=== PATIENT | male | born 1985 | race Caucasian/White ===

== ENCOUNTER 2020-02-18 14:09 | Outpatient (REF) | payer BC, SELFPAY | END 2020-02-18 14:10 | disposition home or self-care (01) | LOC: HO.LNP 14:09 | PROVIDERS: Visit Provider Internal Medicine | DX: Z20.828 Contact with and (suspected) exposure to other viral communicable diseases (principal) | CPT/HCPCS: U0003 ==

== ENCOUNTER 2020-02-28 22:07 | Day surgery (SDC) | payer BC, SELFPAY ==
[2020-02-28 22:10] VITALS: BP 135/89; PULSE 87; RESP 18; TEMP 37; O2SAT 97; BMI 31.8
--- NOTE | 2020-02-28 22:17 | ED.GENADULT ---
HPI - General Adult General Chief complaint: General Medical Stated complaint: Food stuck in throat Time Seen by Provider: 02/28/20 22:17 Source: patient Mode of arrival: ambulatory Limitations: no limitations History of Present Illness HPI narrative: Patient had Serbian food which include beef and chicken around 17:30 feels food stuck in his esophagus. This has happened before also but patient able to vomit or pass it off his own at this time patient is not able to throw up a not able to take liquids or solids. Patient denies any abdominal pain no history of gastritis patient never had endoscopy in the past Related Data Home Medications Medication Instructions Recorded Confirmed No Known Home Meds 02/28/20 02/28/20 Allergies Allergy/AdvReac Type Severity Reaction Status Date / Time No Known Allergies Allergy Verified 02/28/20 23:13 Review of Systems Review of Systems: Constitutional : No Weight loss, No Fever, No Chills ENT/Mouth : No sore throat, No Rhinorrhea Eyes: No Eye Pain, No Swelling Cardiovascular : No Chest Pain, no Dyspnea on Exertion, No Orthopnea, No Edema, No Palpitations, no SOB Respiratory : No Cough, No Sputum Gastrointestinal : no Nausea, No Vomiting, No Diarrhea, No abdominal Pain, No Hematochezia, No Melena Genitourinary : No Dysuria, No Urinary Frequency Musculoskeletal : No joint pain, No Myalgias, No Joint Swelling Skin : No Skin Lesions, No rash Neuro : No Weakness, No Numbness, pos Dizziness, No Headache Psych : No Anxiety/Panic, No Depression Heme/Lymph: No Bruising, No Lymphadenopathy Endocrine : No Polyuria, No Polydipsia All other systems reviewed and are negative [facility] Past Medical History Medical History Seasonal allergies Social History Social History Advance Directives: No Advance Directives Information Provided: No Physical Exam Vital Signs: Vital Signs: Last Vital Signs Temp 98.6 F 02/28/20 22:10 Pulse 88 02/28/20 22:49 Resp 16 02/28/20 22:49 BP 132/86 02/28/20 22:49 Pulse Ox 98 02/28/20 22:49 Body Mass Index 31.8 Appearance: Alert. Oriented X3. No acute distress. Eyes: Pupils equal, round and reactive to light. ENT: Pharynx normal. No drooling of saliva no stridor Neck: Normal inspection. Neck supple. CVS: Normal heart rate and rhythm. Pulses normal. Respiratory: No respiratory distress. Breath sounds normal. Abdomen: Soft and nontender. Bowel sounds are present, no mass palpable, no CVA tenderness Skin: Skin warm and dry. Normal skin color. Normal skin turgor. Extremities: No lower extremity edema. Neuro: Oriented X 3. No motor deficit. No sensory deficit. Medical Decision Making MDM Narrative Medical decision making narrative: Patient with achalasia unable to swallow liquids or solids IV glucagon tried without any improvement also EZ gas tried without success. Case discussed with Dr. Soares will take patient to OR for endoscopy tonight Lab Data Lab results reviewed: Yes I reviewed the patient's lab results. Result diagrams: 02/28/20 22:49 02/28/20 22:49 Labs: Lab Results 02/28/20 02/28/20 02/28/20 Range/Units 22:49 22:49 23:45 WBC 5.5 (4.8-10.8) X10*3/uL RBC 5.55 (4.60-5.80) X10*6/uL Hgb 17.1 (14.0-18.0) g/dl Hct 50.6 (42-52) % MCV 91.2 (80-98) fL MCH 30.8 (27.0-33.0) pg MCHC 33.8 (31.0-36.0) g/dl RDW 11.9 (11.0-16.0) % Plt Count 231 (160-400) X10*3/uL MPV 11.0 (9.4-12.4) fL Immature Gran % (Auto) 0.2 (0.0-0.4) % Neut % (Auto) 64.2 (45-73) % Lymph % (Auto) 25.4 (20-40) % [place] % (Auto) 5.5 (2-11) % Eos % (Auto) 4.0 (0-4) % Baso % (Auto) 0.7 (0-2) % Lymph # (Auto) 1.4 (1.2-4.9) X10*3/uL [place] # (Auto) 0.3 (0.1-1.2) X10*3/uL Eos # (Auto) 0.2 (0.0-0.4) X10*3/uL Baso # (Auto) 0.0 (0.0-0.2) X10*3/uL Abs Immat Gran (auto) 0.01 (0.00-0.03) X10*3/uL Absolute Neuts (auto) 3.5 (2.0-8.3) X10*3/uL Absolute Nucleated RBC 0.000 (0.0-0.012) X10*3/uL Nucleated RBC % (auto) 0.0 (0.0-0.2) /100WBC Sodium 141 (135-145) mmol/L Potassium 4.7 (3.3-5.1) mmol/l Chloride 103 (96-108) mmol/L Carbon Dioxide 29 (22-29) mmol/L Anion Gap 14 (12-20) BUN 14 (9-16) mg/dL Creatinine 0.98 (0.5-1.4) mg/dL Estim Creat Clear Calc 132.7 Estimated GFR > 60 Random Glucose 99 (60-115) mg/dL Calcium 9.3 (8.4-10.2) mg/dL COVID-19 (NICCI) Negative (Negative) COVID-19 Clin Com See Note Discharge Plan Discharge Clinical Impression: Impacted foreign body in esophagus Qualifiers: Encounter type: initial encounter Qualified Code(s): T18.108A - Unspecified foreign body in esophagus causing other injury, initial encounter Patient Disposition: Admitted as Observation
[2020-02-28 22:33] VITALS: O2SAT 97
--- NOTE | 2020-02-28 22:39 | XR_ITS ---
EXAMINATION: CHEST 1 VIEW CLINICAL INFORMATION: Achalasia. COMPARISON: 03/15/2011. TECHNIQUE: An AP view of the chest is provided. FINDINGS: The cardiac silhouette is not enlarged. The mediastinal and hilar contours are unremarkable. There are neither pleural effusions nor pneumothoraces. There are no consolidations. The osseous structures are unremarkable. XR/XR chest 1V IMPRESSION: No evidence for acute disease.
[2020-02-28 22:49] VITALS: BP 132/86; PULSE 88; RESP 16; O2SAT 98
--- NOTE | 2020-02-28 22:52 | PC.NURSE ---
Pt arrives from home, speaking full sentences, CAOx4, voice noted to be mildly hoarse. Pt explains he was eating south african food @ 1700 when food became stuck in his throat. Pt reports difficulty swallowing saliva, states he has been spitting it out as swallowing is painful. Pt attempted forced vomiting [employer] to dislodge obstruction but was unable to. Pt pointing to mid chest when describing location of discomfort. IV established, labs obtained, pt medicated per MAR. Pt provided with an emesis bag and kleenex at this time, states he feels really uncomfortable. Continue to monitor.
[2020-02-28 23:04] LABS: Basophils Percent Auto 0.7 % (0-2); Eosinophils Absolute Auto 0.2 X10*3/uL (0.0-0.4); Hematocrit 50.6 % (42-52); Hemoglobin 17.1 g/dl (14.0-18.0); Imm Gran Abs Auto 0.01 X10*3/uL (0.00-0.03); Imm Gran Pct Auto 0.2 % (0.0-0.4); Lymphocytes Absolute Auto 1.4 X10*3/uL (1.2-4.9); Lymphocytes Percent Auto 25.4 % (20-40); MANUAL DIFF FLAG NO; Mean Corpuscular HGB Conc 33.8 g/dl (31.0-36.0); Mean Corpuscular Hemoglobin 30.8 pg (27.0-33.0); Mean Corpuscular Volume 91.2 fL (80-98); Monocytes Absolute Auto 0.3 X10*3/uL (0.1-1.2); Monocytes Percent Auto 5.5 % (2-11); Neutrophils Absolute Auto 3.5 X10*3/uL (2.0-8.3); Neutrophils Percent Auto 64.2 % (45-73); Platelet Count 231 X10*3/uL (160-400); Red Blood Count 5.55 X10*6/uL (4.60-5.80); Red Cell Distribution Width 11.9 % (11.0-16.0); White Blood Count 5.5 X10*3/uL (4.8-10.8)
--- NOTE | 2020-02-28 23:04 | PC.NURSE ---
at bedside administering EZ Gas.
--- NOTE | 2020-02-28 23:16 | PC.NURSE ---
Pt reports no relief after the EZ gas. Pt sipping gingerale, reports extreme discomfort, forcing self to vomit, pt vomiting clear fluid. XRay at bedside.
[2020-02-28 23:39] LABS: Anion Gap 14 (12-20); Blood Urea Nitrogen 14 mg/dL (9-16); Calcium 9.3 mg/dL (8.4-10.2); Carbon Dioxide 29 mmol/L (22-29); Chloride 103 mmol/L (96-108); Creatinine Clr Calc Pharmacy 132.7; Estimated Glomerular Filt Rate > 60; Glucose Random 99 mg/dL (60-115); Potassium 4.7 mmol/l (3.3-5.1); Sodium 141 mmol/L (135-145)
[2020-02-28] MEDS: Famotidine/PF 20 MG/2 ML VIAL IVPUSH (23:40)
[2020-02-28] MEDS: 0.9 % Sodium Chloride 1,000 ML 999 ML IVCONT (23:40)
--- NOTE | 2020-02-28 23:40 | PC.NURSE ---
Pt medicated per MAY. Pt reporting increased intermittent pain with nausea and difficulty swallowing. Continue to monitor.
[2020-02-28] MEDS: ondansetron HCL 4 MG/2 ML VIAL IVPUSH (23:47)
--- NOTE | 2020-02-28 23:47 | PC.NURSE ---
Pt medicated with Zofran per request due to nausea. submarine cable equipment technician at bedside to obtain Covid swab.
--- NOTE | 2020-02-28 23:53 | PC.NURSE ---
Dr Soares at bedside for primary eval. Pt aware of plan for a possible endoscopy to remove obstruction tonight.
--- NOTE | 2020-02-29 00:03 | PM.EVENT ---
Event Note Date of Service: 02/29/20 Event Note: GI Consult-Full note dictated Imp: 34yo healthy male presenting with an esophageal obstruction since dinner time. This has been refractory to medical therapy in the ER. He denies CP nor SOB. He describes similar but briefer episodes in the past, but has never needed to come to the ER nor has he needed an endoscopy. Rec: EGD with possible dilation with MAC/GA tonight. Full consent obtained from him for this, including risks of bleeding and perforation. Patient was comfortable with this plan. Thanks
[2020-02-29 00:06] LABS: COVID-19 Test Negative (Negative); IDNOW Serial# 9DD0AD1C
--- NOTE | 2020-02-29 00:21 | PC.NURSE ---
Pt ambulating to the bathroom with a blunt/steady gait.
--- NOTE | 2020-02-29 00:27 | PC.NURSE ---
Pt changing into hospital gown, belongings list completed at bedside with pt.
--- NOTE | 2020-02-29 00:34 | HO.ANESPROP2 ---
[facility] Past Medical History Medical History Seasonal allergies Social History Social History Advance Directives: No Advance Directives Information Provided: No Meds Allergies Allergy/AdvReac Type Severity Reaction Status Date / Time No Known Allergies Allergy Verified 02/28/20 23:13 Home Medications Medication Instructions Recorded Confirmed Type No Known Home Meds 02/28/20 02/28/20 History Exam Exam Date and Time: February 29, 2020 0034 Height,Weight and Vital Signs: Height 6 ft Weight 106.594 kg Last Vital Signs Temp 98.6 F 02/28/20 22:10 Pulse 88 02/28/20 22:49 Resp 16 02/28/20 22:49 BP 132/86 02/28/20 22:49 Pulse Ox 98 02/28/20 22:49 Pertinent Lab Results Pertinent Lab Results: Laboratory Tests 02/28/20 02/28/20 02/28/20 22:49 22:49 23:45 WBC 5.5 RBC 5.55 Hgb 17.1 Hct 50.6 MCV 91.2 MCH 30.8 MCHC 33.8 RDW 11.9 Plt Count 231 MPV 11.0 Immature Gran % (Auto) 0.2 Neut % (Auto) 64.2 Lymph % (Auto) 25.4 [place] % (Auto) 5.5 Eos % (Auto) 4.0 Baso % (Auto) 0.7 Lymph # (Auto) 1.4 [place] # (Auto) 0.3 Eos # (Auto) 0.2 Baso # (Auto) 0.0 Abs Immat Gran (auto) 0.01 Absolute Neuts (auto) 3.5 Absolute Nucleated RBC 0.000 Nucleated RBC % (auto) 0.0 Sodium 141 Potassium 4.7 Chloride 103 Carbon Dioxide 29 Anion Gap 14 BUN 14 Creatinine 0.98 Estim Creat Clear Calc 132.7 Estimated GFR > 60 Random Glucose 99 Calcium 9.3 COVID-19 (NICCI) Negative COVID-19 Clin Com See Note Assessment and Plan Final Anesthetic Review Final Preanesthetic Review: No Changes in Pt Med Stat, Meds/Allgs Chart Reviewed, Consent Obtained/Reviewed and Anes Risks/Benef Reviewed Patient Risk: Intermediate Procedure Risk: Intermediate Anesthetic Plan Anesthetic Plan: GA Disposition: Standard PACU
--- NOTE | 2020-02-29 00:41 | PC.NURSE ---
Report given to OR.
--- NOTE | 2020-02-29 01:20 | CONS_ITS ---
DATE OF SERVICE: REQUESTING PHYSICIAN: Dr. Baeza in the ER. REASON FOR CONSULTATION: Dysphagia and esophageal obstruction. HISTORY OF PRESENT ILLNESS: The patient is a 34-year-old healthy male, who describes the onset of dysphagia at approximately 6 p.m. tonight during dinner. He had been eating Telugu food. Since that time, he has been unable to swallow any liquids nor saliva. He came to the ER and received IV glucagon, but without any relief. He continues to have to vomit up saliva. He denies any chest pain or shortness of breath. He does describe similar episodes in the past, but usually much briefer and able to spontaneously resolve with some regurgitation. He has never had to come to the ER nor have endoscopy. He denies any chronic heartburn. He is otherwise healthy. He denies any abdominal pains generally. His bowel movements have been regular without any sign of bleeding. He denies any family history of esophageal disease. MEDICATIONS: At home, none. PAST MEDICAL HISTORY: Seasonal allergies. He denies any history of heart disease, diabetes, stroke, lung disease, or kidney disease. PAST SURGICAL HISTORY: He denies any surgeries. 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 He is . He does not smoke. He has occasional alcohol. FAMILY HISTORY: Noncontributory. REVIEW OF SYSTEMS: CONSTITUTIONAL: In general, he has been feeling well with good energy and good appetite. SKIN: No rash. No pruritus. CARDIAC: No chest pain. PULMONARY: No cough. No hemoptysis. GI: As above. PHYSICAL EXAMINATION: GENERAL: The patient is a pleasant, alert male, nonjaundiced. NECK: Supple without lymphadenopathy nor crepitus. CHEST: Clear. CARDIAC: Normal S1 and S2. ABDOMEN: Soft, nondistended, and nontender. IMPRESSION: Given the patient's clinical history and refractory symptoms to medication, he will undergo upper endoscopy with possible dilation this evening. This will be done with monitored anesthesia care or general anesthesia. He may very well have an esophageal ring or stricture causing his previous intermittent symptoms and tonight's obstruction. Full consent has been obtained for the endoscopy and possible dilation, including risks of bleeding and perforation. Thank you for this consultation. MD MERLE Hansen/GILMA / [id number] CB
--- NOTE | 2020-02-29 01:25 | PM.OP ---
Brief Operative Note Date of Service: 02/29/20 Pre-op diagnosis: Esophageal obstruction Post-op diagnosis: other (Same, esophagitis, hiatal hernia) Procedure: EGD with removal of esophageal foreign body Surgeon: Jovani Soares Anesthesia: LASHAWN Estimated blood loss (mL): 0 Pathology: none sent Condition: stable Disposition: PACU
[2020-02-29 01:40] VITALS: BP 134/90; PULSE 81; RESP 16; TEMP 36.9; O2SAT 95
[2020-02-29 01:45] VITALS: BP 132/77; PULSE 80; RESP 16; O2SAT 96
--- NOTE | 2020-02-29 01:50 | OP_ITS ---
SURGEON: Jovani Soares MD INDICATIONS: The patient presents for evaluation of esophageal obstruction. Full consent was obtained from him for this, including risks of bleeding and perforation. PREOPERATIVE DIAGNOSIS: Esophageal obstruction. POSTOPERATIVE DIAGNOSIS: PROCEDURE PERFORMED: Esophagogastroduodenoscopy with removal of esophageal foreign body. ESTIMATED BLOOD LOSS: COMPLICATIONS: ANESTHESIA: General anesthesia. ASSISTANTS: SPECIMENS: POSTOPERATIVE DIAGNOSES: Esophageal obstruction, distal esophagitis, hiatal hernia. DESCRIPTION OF PROCEDURE: The patient was placed in the supine position. The Olympus video gastroscope was passed in the posterior oropharynx and upper esophagus under direct vision. The scope was passed slowly to the distal esophagus. There was some fluid in the esophagus, which was suctioned and removed. The food bolus was seen at approximately 39 cm. Initial attempts at just pushing it into the stomach were unsuccessful. The food bolus was broken up with the biopsy forceps and then pushed completely into the stomach. The scope was advanced to pylorus, and the duodenum was cannulated to the descending portion. The duodenum including the bulb appeared normal without mass or ulceration. The scope was withdrawn back to the stomach. The gastric antrum and body appeared normal with good peristalsis. The scope was retroflexed visualizing the proximal stomach. This was only partially visualized due to the retained food and fluid. There were no masses nor ulceration visualized. The scope was straightened and withdrawn back to the esophagus. The gastroesophageal junction was carefully inspected. There was some evidence of esophagitis and friability from where the food had been. There was no definitive stricture nor ring. The scope was then withdrawn through the remainder of the esophagus, which appeared normal. There was no evidence of any proximal esophageal rings. The scope was withdrawn from the patient. He tolerated the procedure well and was returned to the recovery area in stable condition. IMPRESSION: 1. Esophageal foreign body. 2. Distal esophagitis secondary to the impacted food. 3. Small hiatal hernia. PLAN: The patient will be discharged later this evening if stable. I will give him a prescription to use omeprazole 20 mg daily. He was instructed to eat very carefully and slowly. Given his previous history of transient esophageal obstructions, I would recommend a repeat upper endoscopy with possible balloon dilation in the next month or so He was advised to call sooner if need be. This has been discussed with his family. MD MRELE Hasnen/GILMA / [id number] MTDD
[2020-02-29 01:51] VITALS: BP 145/76; PULSE 81; RESP 16; O2SAT 95
[2020-02-29 01:56] VITALS: BP 140/81; PULSE 79; RESP 16; O2SAT 96
--- NOTE | 2020-03-01 09:40 | HO.POSTANES ---
Post Anesthesia Evaluation Post Anesthesia Evaluation Vital Signs: VSS Anesthesia: Monitored Mental Status: Awake Pain Control: Satisfactory Nausea/Vomiting: None Hydration: Adequate Anesthesia-Related Issues: No Anes. Related Issues
== END 2020-02-29 02:05 | disposition home or self-care (01) ==
LOC: HO.ED 22:52 → HO.SSS 02-29 00:26
PROVIDERS: Emergency Provider Internal Medicine; PCP Internal Medicine; Visit Provider Internal Medicine
PROC: 0DJ08ZZ Inspection of Upper Intestinal Tract, Via Natural or Artificial Opening Endoscopic (ICD-10-PCS; CPT 43235; principal; 2020-02-29 00:20)
DX: T18.128A Food in esophagus causing other injury, initial encounter (principal); K20.90 Esophagitis, unspecified without bleeding; K44.9 Diaphragmatic hernia without obstruction or gangrene; X58.XXXA Exposure to other specified factors, initial encounter; Y93.9 Activity, unspecified; Y92.9 Unspecified place or not applicable; Y99.9 Unspecified external cause status; Z20.828 Contact with and (suspected) exposure to other viral communicable diseases
CPT/HCPCS: 43247; 36415; 71045; 80048; 85025; 87635; 96361; 96374; 96375; 99285; J0330; J1610; J2250; J2405

== ENCOUNTER 2020-04-05 10:53 | Day surgery (SDC) | payer BC, SELFPAY ==
--- NOTE | 2020-04-02 10:19 | P.CONAN_ITS ---
Documented by User: Makayla Gomez 04/02/20 10:20 HPI - Anesthesia Eval Consult details Narrative: 34yo M for Upper Endoscopy EGD for food bolus with GA 02/29/20 [facility] Past Medical History Medical History (Updated 04/05/20 @ 11:38 by Enriqueta Hall) GERD (gastroesophageal reflux disease) Hiatal hernia Seasonal allergies Surgical History Surgical History History of esophagogastroduodenoscopy (EGD) Social History Social History Smoking Status: Never smoker Use of substances other than those prescribed or required for medical reasons: No Advance Directives: No Advance Directives Information Provided: Yes Recently lost weight without trying: No Meds Allergies Allergy/AdvReac Type Severity Reaction Status Date / Time No Known Allergies Allergy Verified 03/30/20 12:52 Home Medications Medication Instructions Recorded Confirmed Type omeprazole 20 mg PO DAILY 03/30/20 03/30/20 History Exam Exam Date and Time: April 02, 2020 1019 Assessment and Plan Assessment Anesthesia Assessment: Chart Reviewed Documented by User: Enriqueta Hall 04/05/20 11:39 [facility] Past Medical History Medical History (Updated 04/05/20 @ 11:38 by Enriqueta Hall) GERD (gastroesophageal reflux disease) Hiatal hernia Seasonal allergies Family History Family history of problems with anesthesia: No Surgical History Surgical History History of esophagogastroduodenoscopy (EGD) History of Problems with Anesthesia: No Social History Social History Smoking Status: Never smoker Use of substances other than those prescribed or required for medical reasons: No Advance Directives: No Advance Directives Information Provided: Yes Recently lost weight without trying: No Meds Allergies Allergy/AdvReac Type Severity Reaction Status Date / Time No Known Allergies Allergy Verified 03/30/20 12:52 Home Medications Medication Instructions Recorded Confirmed Type omeprazole 20 mg PO DAILY 03/30/20 03/30/20 History Exam Height,Weight and Vital Signs: Vital Signs Temp Pulse Resp BP Pulse Ox 04/05/20 11:09 98.2 F 73 18 127/74 99 Airway Mallampati Class: I TM Dist: >3cm Neck ROM: Full Heart: RRR Lungs: CTAB Assessment and Plan Assessment Anesthesia Assessment: Anesthesia Plan Discussed and Chart Reviewed Final Anesthetic Review NPO: Yes ASA Class: II Final Preanesthetic Review: No Changes in Pt Med Stat, Meds/Allgs Chart Reviewed, Consent Obtained/Reviewed and Anes Risks/Benef Reviewed Patient Risk: Low Procedure Risk: Low Assessment/Block/Sedation in SS: Assess/Block/Sedation-SS Anesthetic Plan Anesthetic Plan: MAC: Disposition: Standard PACU
[2020-04-05 11:09] VITALS: BP 127/74; PULSE 73; RESP 18; TEMP 36.8; O2SAT 99; BMI 31.6
[2020-04-05] MEDS: Lactated Ringers 1,000 ML 100 ML IVCONT (11:20)
[2020-04-05 12:04] VITALS: BP 112/63; PULSE 79; RESP 16; TEMP 36.4; O2SAT 98
--- NOTE | 2020-04-05 12:06 | PM.OP ---
Brief Operative Note Date of Service: 04/05/20 Pre-op diagnosis: Dysphagia Post-op diagnosis: other (Small hiatal hernia, R/O Eosinophilic esophagitis) Procedure: EGD with biopsies and balloon dilation with an 18 to 19 mm balloon Surgeon: Jovani Soares Anesthesia: MAC Estimated blood loss (mL): 3.0 Pathology: other (A. Esophagus at 25cm) Condition: stable Disposition: PACU
[2020-04-05 12:20] VITALS: BP 105/68; PULSE 69; RESP 16; TEMP 36.4; O2SAT 95
--- NOTE | 2020-04-05 13:30 | OP_ITS ---
SURGEON: Jovani Soares MD INDICATIONS: The patient presents for evaluation of previous history of esophageal obstruction and dysphagia. Full consent has been obtained from him for this, including risks of bleeding and perforation. PREOPERATIVE DIAGNOSIS: History of esophageal obstruction and dysphagia. POSTOPERATIVE DIAGNOSIS: 1. History of esophageal obstruction and dysphagia. 2. Small hiatal hernia. Rule out eosinophilic esophagitis. PROCEDURE PERFORMED: Esophagogastroduodenoscopy with balloon dilation of gastroesophageal junction, and biopsies. ESTIMATED BLOOD LOSS: COMPLICATIONS: ANESTHESIA: Monitored anesthesia care. ASSISTANTS: SPECIMENS: DESCRIPTION OF PROCEDURE: The patient was placed in the left lateral decubitus position. An Olympus video gastroscope was passed in the posterior oropharynx and upper esophagus under direct vision. The scope was passed slowly into the distal esophagus. The gastroesophageal junction appeared normal at 39 cm. There was no definitive evidence of esophageal ring nor stricture. There was no esophagitis. There was a minimal hiatal hernia. The scope was advanced to the pylorus. The duodenum was cannulated to the descending portion. The duodenum including the bulb appeared normal without mass or ulceration. The scope was withdrawn back in the stomach. The gastric antrum and body appeared normal with good peristalsis. Scope was retroflexed visualizing the proximal stomach carefully, which appeared normal, without any sign of mass or ulceration. The scope was straightened and withdrawn back to the esophagus. I did use a [employer] Incremental balloon to dilate the gastroesophageal junction from 18 mm to 19 mm at the recommended pressure for between 30 and 60 seconds. There was some heme noted post dilation, but there was no definitive disruption of any stricture nor ring noted. The scope was then withdrawn through the remainder of the esophagus. There were no definitive proximal esophageal rings. Biopsies were obtained at 25 cm to rule out eosinophilic esophagitis. The scope was withdrawn from the patient. He tolerated the procedure well and was returned to recovery area in stable condition. IMPRESSION: 1. Small hiatal hernia. 2. Status post balloon dilation of gastroesophageal junction. 3. Rule out eosinophilic esophagitis. PLAN: The results of the biopsy will be checked. He has been using omeprazole 20 mg daily since his esophageal obstruction at the end of February. I advised him to use that for 1 more month and then at that point he could stop it as he was not having any significant reflux. If things are stable and he is doing well, he can then see me on a p.r.n. basis. He was instructed to call me if dysphagia recurs. MD MERLE Hansen/GILMA / [id number] MTDD
== END 2020-04-05 12:45 | disposition home or self-care (01) ==
PROVIDERS: PCP Internal Medicine; Visit Provider Internal Medicine
PROC: 0DJ08ZZ Inspection of Upper Intestinal Tract, Via Natural or Artificial Opening Endoscopic (ICD-10-PCS; CPT 43235; principal; 2020-04-05 11:50)
DX: R13.10 Dysphagia, unspecified (principal); K21.00 Gastro-esophageal reflux disease with esophagitis, without bleeding; Z87.19 Personal history of other diseases of the digestive system; K44.9 Diaphragmatic hernia without obstruction or gangrene; J30.2 Other seasonal allergic rhinitis; Z79.899 Other long term (current) drug therapy
CPT/HCPCS: 43249; 43239; 88305; C1726

== ENCOUNTER 2020-10-02 20:03 | Emergency (ER) | payer BC, SELFPAY ==
[2020-10-02 20:17] VITALS: BP 127/77; PULSE 78; RESP 18; TEMP 36.5; O2SAT 97; BMI 30.3
--- NOTE | 2020-10-02 21:19 | ED_ITS ---
HPI - Wound/Laceration General Chief Complaint: Wound/Laceration Stated Complaint: LAC Time Seen by Provider: 10/02/20 20:28 Source: patient Mode of arrival: ambulatory Limitations: no limitations History of Present Illness HPI narrative: 34-year-old male presents with laceration to the scrotum after his dog accidentally bit him through his pants. States that he was playing with his dog, the dog missed testicles. He also reports to have some swelling to the left knee after a suspected insect bite. Does not report any other symptoms. Onset (ago): hour(s) (Within the hour of arrival) Location: genitals Place: home Patient tetanus UTD: No Context: accidental Associated symptoms: pain Related Data Home Medications Medication Instructions Recorded Confirmed omeprazole 20 mg PO DAILY 03/30/20 03/30/20 Previous Rx's Medication Instructions Recorded amoxicillin-pot clavulanate 1 tab PO Q12H 10 Days #20 tab 10/02/20 [Augmentin] doxycycline monohydrate 100 mg PO BID 14 Days #28 tab 10/02/20 oxycodone 5 mg PO Q8H PRN #10 tab 10/02/20 Allergies Allergy/AdvReac Type Severity Reaction Status Date / Time No Known Allergies Allergy Verified 03/30/20 12:52 Review of Systems Review of Systems: Constitutional: No Fever, No Chills ENT/Mouth: No Ear Pain, No Hoarseness, No sore throat Eyes: No Eye Pain, No Swelling, No Redness, No Foreign Body Cardiovascular: No Chest Pain, No SOB Respiratory: No Cough, No Dyspnea Gastrointestinal: No Nausea, No Vomiting, No Diarrhea, No abdominal Pain Genitourinary: No Dysuria, No Hematuria Musculoskeletal: positive testicular pain, No Myalgias, No Joint Swelling Skin: Positive scrotal laceration, No Skin lacerations, No rash Neuro: No Weakness, No Numbness, No Paresthesias, No Loss of Consciousness, No Dizziness, No Headache Psych: No Anxiety/Panic, No Depression Heme/Lymph: no easy bruising, no Lymphadenopathy Endocrine: No Polyuria, No Polydipsia Yes all other systems are reviewed and are negative [facility] Past Medical History Attestation statement: The following information was validated with the patient. Source: old records reviewed Medical History (Updated 10/02/20 @ 22:17 by Chasidy Muñoz NP) GERD (gastroesophageal reflux disease) Hiatal hernia Seasonal allergies Surgical History History of esophagogastroduodenoscopy (EGD) Social History Social History Advance Directives: No Physical Exam Vital Signs: Vital Signs: Last Vital Signs Temp 97.7 F 10/02/20 20:17 Pulse 78 10/02/20 20:17 Resp 18 10/02/20 20:17 BP 127/77 10/02/20 20:17 Pulse Ox 97 10/02/20 20:17 Body Mass Index 30.3 Appearance: Alert. Oriented X3. No acute distress. Eyes: Pupils equal, round and reactive to light. ENT: Pharynx normal. Neck: Normal inspection. Neck supple. CVS: Normal heart rate and rhythm. Pulses normal. Respiratory: No respiratory distress. Breath sounds normal. Abdomen: Soft and nontender. Skin: 1.5 cm flap laceration to the left scrotum. No testicular swelling or bruising. Skin warm and dry. Normal skin color. Normal skin turgor. Extremities: No lower extremity edema. Neuro: No motor deficit. No sensory deficit. Course Course Course Narrative: 34-year-old male presents with scrotal laceration after his dog accidentally bit him through his pants while playing. Tdap will be updated today. Will irrigate with 2 L of normal saline with Betadine cleanse. I did discuss antibiotic options with this patient, Dr. Reyna also in to evaluate. Patient does have a wound on the left lateral knee suspected to be tick bite. Will order Lyme titer. We will treat with doxycycline and Augmentin. Patient does understand why we cannot suture this lack and it should be open. He will monitor for signs and symptoms of infection and follow up with Urology if needed. Patient verbalized understanding of and agrees to plan of care discharge home. MDM - Wound/Laceration Differential Diagnosis Differential diagnosis: Likely laceration Medical Records Attestation: I reviewed the patient's medical records. Discharge Plan Discharge Clinical Impression: Laceration of scrotum Qualifiers: Encounter type: initial encounter Qualified Code(s): S31.31XA - Laceration without foreign body of scrotum and testes, initial encounter Dog bite Qualifiers: Encounter type: initial encounter Qualified Code(s): W54.0XXA - Bitten by dog, initial encounter Patient Disposition: Home, Self-Care Instructions: Animal Bite (ED), Laceration (ED) Additional Instructions: you were evaluated for dog bite to the testicle. Please take doxycycline and Augmentin as directed. Your Lyme titer is pending. You may consider following up with urology, I referred you to Dr. Tipton If you notice signs of infection, which include but are not limited to swelling, fevers, chills, purulent drainage from the site please return to the emergency department for immediate evaluation. We updated Your Tdap vaccine today. Thank you for choosing this emergency department for evaluation. Please follow-up with primary care physician as needed. Return to the emergency department for any new, concerning, or worsening symptoms. Prescriptions: New doxycycline monohydrate 100 mg tablet 100 mg PO BID 14 Days Qty: 28 RF: 0 amoxicillin-pot clavulanate [Augmentin] 875-125 mg tablet 1 tab PO Q12H 10 Days Qty: 20 RF: 0 oxycodone 5 mg tablet 5 mg PO Q8H PRN (Reason: pain) Qty: 10 RF: 0 No Action omeprazole 20 mg Tablet,Delayed Release (Dr/Ec) 20 mg PO DAILY RF: 0 Referrals: Jameson Tipton MD [Physician] - 2 days ( dog bite with scrotal laceration) Stand Alone Forms: Work/School Release
[2020-10-02] MEDS: oxyCODONE HCl Immed Release 5 MG TABLET PO (21:37)
[2020-10-02] MEDS: Amoxicillin/Potassium Clav 875 MG TABLET PO (21:38)
[2020-10-02] MEDS: Diphth,Pertus(ACell),Tet Adult 0.5 ML SYRINGE IM (22:37)
[2020-10-04 23:16] LABS: Lyme Blot 5.13 index
[2020-10-06 13:00] LABS: Lyme Abs Screen POSITIVE
[2020-10-08 01:16] LABS: 18 KD (IgG) Band REACTIVE; 23 KD (IgG) Band NON-REACTIVE; 23 KD (IgM) Band NON-REACTIVE; 28 KD (IgG) Band NON-REACTIVE; 30 KD (IgG) Band NON-REACTIVE; 39 KD (IgM) Band NON-REACTIVE; 41 KD (IgM) Band NON-REACTIVE; 45 KD (IgG) Band REACTIVE; 58 KD (IgG) Band REACTIVE; 66 KD (IgG) Band NON-REACTIVE; 93 KD (IgG) Band NON-REACTIVE; Lyme IgG Blot Interp POSITIVE (NEGATIVE); Lyme IgM Blot Interp NEGATIVE (NEGATIVE)
== END 2020-10-02 22:41 | disposition home or self-care (01) ==
PROVIDERS: Nurse Practitioner Family; Emergency Provider Emergency Medicine; PCP Internal Medicine
DX: S31.31XA Laceration without foreign body of scrotum and testes, initial encounter (principal); W54.0XXA Bitten by dog, initial encounter; S80.262A Insect bite (nonvenomous), left knee, initial encounter; W57.XXXA Bitten or stung by nonvenomous insect and other nonvenomous arthropods, initial encounter; M25.562 Pain in left knee; Y93.9 Activity, unspecified; Y92.019 Unspecified place in single-family (private) house as the place of occurrence of the external cause; Y99.9 Unspecified external cause status
CPT/HCPCS: 36415; 86617; 86618; 90471; 90715; 99283; 99284

== ENCOUNTER → 2021-02-28 13:13 | Outpatient (BNVA) | payer SELFPAY | PROVIDERS: PCP Internal Medicine; Visit Provider Internal Medicine | DX: Z02.79 Encounter for issue of other medical certificate (principal) ==

== ENCOUNTER 2021-05-10 15:50 | Outpatient (REF) | payer BC, SELFPAY ==
--- NOTE | ~2021-05-10 | XR_ITS ---
EXAMINATION: XR CHEST CLINICAL INFORMATION: Hemoptysis COMPARISON: None TECHNIQUE: 2 views of the chest were obtained. FINDINGS: No significant abnormality is noted involving the heart, lungs, mediastinum, bony thorax or soft tissues. XR/XR chest 2V IMPRESSION: Unremarkable chest examination.
== END 2021-05-10 15:51 | disposition home or self-care (01) ==
LOC: HO.XRAY 15:50
PROVIDERS: PCP Internal Medicine; Visit Provider Internal Medicine
DX: R04.2 Hemoptysis (principal)
CPT/HCPCS: 71046

== ENCOUNTER 2021-06-07 13:22 | Outpatient (REF) | payer BC, SELFPAY ==
--- NOTE | ~2021-06-07 | CT_ITS ---
EXAMINATION: CT SINUS WITHOUT CONTRAST CLINICAL INFORMATION: 35-year-old with epistaxis. COMPARISON: None TECHNIQUE: Volumetric CT imaging of the paranasal sinuses was done with multiplanar reformatted reconstructions. This CT examination was performed using dose optimization techniques as appropriate, variously including the following: *Automated exposure control *Adjustment of mA and/or kV according to patient size (this includes techniques or standardized protocols for targeted exams where dose is matched to indication/reason for exam; i.e. extremities or head) *Use of iterative reconstruction technique DLP: 120 mGy-cm FINDINGS: Nasal Cavity: There is nasal septal deviation to the left with a prominent spur encroaching on the left middle meatus and inferior turbinate. There is paradoxical curvature of the right middle turbinate. The olfactory recesses are mostly clear with minimal opacification posteriorly. There are bilateral middle turbinate poli bullosa, with near-complete opacification of the right middle turbinate poli bullosa. Question of a small polyp versus retained secretions between the right middle and inferior turbinates. Correlate with direct visualization. Mild asymmetry of the olfactory fossa with the right being slightly deeper than the left, with a maximum depth of 5 mm on the right. The nasopharyngeal soft tissues appear symmetric and grossly unremarkable. Maxillary Sinuses: There is pisx-uk-hmyivhlc mucosal thickening along the floor of the right maxillary sinus adjacent to a 1.5 cm probable retention cyst. Bilateral Yoana cells are noted with associated anatomic narrowing of the maxillary infundibula bilaterally with soft tissue opacification of the right maxillary infundibulum and ostium. There is mild mucosal thickening along the medial wall and floor of the left maxillary sinus, with a 1.8 cm probable retention cyst along the floor. Left OMC is patent. Ethmoid Sinuses: The ethmoid complex is largely unopacified, with intact orbital wong and fovea ethmoidalis. Left fovea ethmoidalis is slightly lower than the right. Frontal Sinuses: The frontal sinuses are well pneumatized bilaterally. The right frontal sinus is clear with a clear right frontal recess and frontonasal drainage. There is a prominent left frontal bullar cell. The left frontal recess appears clear. Sphenoid Sinus: The sphenoid sinus is well-pneumatized with mild mucosal thickening along the anterior wall bilaterally, with bilaterally patent sphenoid ostia. Carotid canals are covered by bone. Additional Findings: Limited assessment of the visualized intracranial structures demonstrates no acute process. Visualized intraorbital soft tissue structures appear unremarkable. Visualized mastoids and middle ear cavities are unopacified. CT/CT sinus wo con IMPRESSION: 1. Nasal septal deviation to the left with a prominent spur encroaching on the left middle meatus and inferior turbinate with paradoxical curvature of the right middle turbinate and bilateral middle turbinate poli bullosa which appears opacified on the right. Question small polyp arising from the right middle turbinate. 2. Bilateral mucosal thickening in the maxillary sinuses with retention cysts along the floors bilaterally. Bilateral Yoana cells noted with anatomic narrowing of the maxillary infundibula bilaterally with soft tissue density occluding the right maxillary ostium. No air-fluid levels. 3. Mild mucosal thickening in the sphenoid sinus anteriorly.
== END 2021-06-07 13:23 | disposition home or self-care (01) ==
LOC: HO.CT 13:22
PROVIDERS: PCP Internal Medicine; Visit Provider Internal Medicine
DX: R04.0 Epistaxis (principal)
CPT/HCPCS: 70486

== ENCOUNTER 2021-10-06 16:19 | Outpatient (REF) | payer BC, SELFPAY ==
--- NOTE | ~2021-10-06 | CT_ITS ---
EXAMINATION: CT HEAD WITHOUT CONTRAST CLINICAL INFORMATION: Concussion with loss of consciousness COMPARISON: Previous sinus CT May 2021 TECHNIQUE: Contiguous axial imaging was performed from the skull base to vertex without intravenous administration of contrast. This CT examination was performed using dose optimization techniques as appropriate, variously including the following: *Automated exposure control *Adjustment of mA and/or kV according to patient size (this includes techniques or standardized protocols for targeted exams where dose is matched to indication/reason for exam; i.e. extremities or head) *Use of iterative reconstruction technique DLP: 785 mGy-cm FINDINGS: There is no evidence of an extra-axial collection. There is no evidence of intra-axial or extra-axial hemorrhage. The ventricles and extra-axial CSF spaces are appropriate. Ortez-white matter differentiation is normal. No mass or mass effect or infarct is seen. No skull fracture is seen. There is deviation of the nasal septum to the right. There is a bilateral poli bullosa and soft tissue opacification of the right middle nasal turbinate that appears unchanged. There is a polyp or cyst in the left maxillary sinus. Paranasal sinuses, mastoid air cells and middle ears are otherwise clear. CT/CT head/brain wo con IMPRESSION: No acute intracranial findings. Nasal cavity and left maxillary sinus disease.
== END 2021-10-06 16:20 | disposition home or self-care (01) ==
LOC: HO.CT 16:19
PROVIDERS: PCP Internal Medicine; Visit Provider Internal Medicine
DX: S06.0X9A Concussion with loss of consciousness of unspecified duration, initial encounter (principal)
CPT/HCPCS: 70450

== ENCOUNTER 2023-08-15 12:48 | Outpatient (REF) | payer BC, SELFPAY ==
[2023-08-15 15:13] LABS: Alanine Aminotransferase 20 U/L (0-40); Albumin Level 4.6 g/dL (3.5-5.0); Alkaline Phosphatase 71 U/L (39-117); Anion Gap 11 (12-20); Aspartate Amino Transferase 20 U/L (5-37); Bilirubin Total 0.9 mg/dL (0.0-1.0); Blood Urea Nitrogen 14 mg/dL (9-16); Calcium 9.8 mg/dL (8.4-10.2); Carbon Dioxide 30 mmol/L (22-29); Chloride 102 mmol/L (96-108); Estimated Glomerular Filt Rate > 60; Glucose Random 96 mg/dL (60-115); Potassium 4.1 mmol/L (3.3-5.1); Sodium 139 mmol/L (135-145); Total Protein 7.5 g/dL (6.5-8.0)
== END 2023-08-15 12:49 | disposition home or self-care (01) ==
LOC: HO.LAB 12:48
PROVIDERS: PCP Internal Medicine; Visit Provider Internal Medicine
DX: Z00.00 Encounter for general adult medical examination without abnormal findings (principal)
CPT/HCPCS: 36415; 80053

== ENCOUNTER 2023-09-20 14:01 | Outpatient (AMB) | payer BC, SELFPAY ==
--- NOTE | 2023-09-20 14:04 | A.OFFVIS_ITS ---
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 Patient reports he was playing softball on 08/14/23, he was running down to first base and heard crunching, unsure if he hyper extended it. next day knee was 3x its size for 3 days straight followed by sharp pain, he iced it , used iburpofen. swelling calmed down, still in pain. crunching and popping with ambulation. feels like knee is going to give out. if he turns his foot inward when he walks he feels it the most. he utilizes a hinged brace he bought himself and offers him stablility. Says hes bow legged so brace is a bit uncomfortable. 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 Patient reports he was playing softball on 08/14/23, he was running down to first base and heard crunching, unsure if he hyper extended it. next day knee was 3x its size for 3 days straight followed by sharp pain, he iced it , used iburpofen. swelling calmed down, still in pain. crunching and popping with ambulation. feels like knee is going to give out. if he turns his foot inward when he walks he feels it the most. he utilizes a hinged brace he bought himself and offers him stablility. Says hes bow legged so brace is a bit uncomfortable. MRI done in [place] 08/17/23> he has had knee pain off and on for years and his knee is slowly improving although it is still painful. 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 IMPRESSION: 1. Diffuse tearing of the body and posterior horn of the medial meniscus as described with medial meniscal extrusion. There is adjacent broad full-thickness cartilage loss at the medial femoral condyle with mild subchondral bone edema. 2. Knee joint effusion with synovitis and small chondral joint bodies. 3. High-grade cartilage thinning at the central femoral trochlea with measurements as above. 4. Discoid lateral meniscus without evidence of tear. Assessment & Plan Assessment & Plan (1) Arthritis of right knee: Code(s): M17.11 - Unilateral primary osteoarthritis, right knee Category: Medical Plan: Right knee OA and Medial meniscus tear. Varus alignment. I recommend an unloading brace and conservative management for 2-3 months. (2) Tear of medial meniscus of right knee: Code(s): S83.241A - Other tear of medial meniscus, current injury, right knee, initial encounter Category: Medical Plan: Degenerative meniscal tear. Will treat with unloading brace and conservative management. f/u 3 mo Medications: Discontinued amoxicillin-pot clavulanate 875-125 mg Discontinued Reason: Patient no longer taking 1 tab PO Q12H 10 days 20 tabs 0RF doxycycline monohydrate Discontinued Reason: Patient no longer taking 100 mg PO BID 14 days 28 tabs 0RF oxycodone Discontinued Reason: Patient no longer taking 5 mg PO Q8H PRN 10 tabs 0RF pain Coding Level of Care Code New Pt Level 4 (71902) Diagnoses Arthritis of right knee M17.11 Tear of medial meniscus of right knee S83.241A
[2023-09-20 14:06] VITALS: BMI 33.9
== END 2023-09-20 14:39 | disposition home or self-care (01) ==
PROVIDERS: PCP Internal Medicine; Visit Provider Orthopaedic Surgery
DX: M17.11 Unilateral primary osteoarthritis, right knee (principal); S83.241A Other tear of medial meniscus, current injury, right knee, initial encounter
CPT/HCPCS: 99204

== ENCOUNTER → 2023-09-20 14:01 | Outpatient (BNVA) | payer BC, SELFPAY | PROVIDERS: PCP Internal Medicine; Visit Provider Orthopaedic Surgery ==

== ENCOUNTER 2023-11-27 16:41 | Outpatient (REF) | payer BC, SELFPAY ==
[2023-11-27 16:52] LABS: MANUAL DIFF FLAG NO
[2023-11-27 17:41] LABS: Basophils Percent Auto 0.7 % (0-2); Eosinophils Absolute Auto 0.2 X10*3/uL (0.0-0.4); Hematocrit 47.4 % (42.0-52.0); Hemoglobin 16.1 g/dl (14.0-18.0); Imm Gran Abs Auto 0.02 X10*3/uL (0.00-0.03); Imm Gran Pct Auto 0.5 % (0.0-0.4); Lymphocytes Absolute Auto 1.3 X10*3/uL (1.2-4.9); Lymphocytes Percent Auto 30.2 % (20-40); Mean Corpuscular Hemoglobin 30.7 pg (27.0-33.0); Mean Corpuscular Volume 90.3 fL (80.0-98.0); Mean Platelet Volume 11.1 fL (9.4-12.4); Monocytes Absolute Auto 0.4 X10*3/uL (0.1-1.2); Monocytes Percent Auto 8.1 % (2-11); Neutrophils Absolute Auto 2.4 x10*3/uL (2.0-8.3); Neutrophils Percent Auto 56.5 % (45-73); Platelet Count 202 X10*3/uL (160-400); Red Blood Count 5.25 X10*6/uL (4.60-5.80); Red Cell Distribution Width 12.5 % (11.0-16.0); White Blood Count 4.3 X10*3/uL (4.8-10.8)
[2023-11-27 17:56] LABS: Alanine Aminotransferase 25 U/L (0-40); Albumin Level 4.4 g/dL (3.5-5.0); Alkaline Phosphatase 63 U/L (39-117); Anion Gap 10 (12-20); Aspartate Amino Transferase 21 U/L (5-37); Bilirubin Total 0.8 mg/dL (0.0-1.0); Blood Urea Nitrogen 13 mg/dL (9-16); Calcium 9.5 mg/dL (8.4-10.2); Carbon Dioxide 31 mmol/L (22-29); Chloride 105 mmol/L (96-108); Estimated Glomerular Filt Rate > 60; Glucose Random 86 mg/dL (60-115); Lipase 29 U/L (8-78); Potassium 4.3 mmol/L (3.3-5.1); Sodium 142 mmol/L (135-145); Total Protein 7.1 g/dL (6.5-8.0)
== END 2023-11-27 16:42 | disposition home or self-care (01) ==
LOC: HO.LAB 16:41
PROVIDERS: PCP Internal Medicine; Visit Provider Internal Medicine
DX: R10.9 Unspecified abdominal pain (principal)
CPT/HCPCS: 36415; 80053; 82550; 83690; 85025; 86140

== ENCOUNTER 2023-12-11 15:37 | Outpatient (REF) | payer BC, SELFPAY ==
[2023-12-11 16:56] LABS: Appearance Urine Clear; Color Urine Yellow; Glucose Urine UA Negative (Negative); Leukocyte Esterase Urine Negative (Negative); Nitrite Urine Negative (Negative); Urine Blood Negative (Negative); Urine Ketones Negative (Negative); Urine Protein Negative (Neg-Trace)
== END 2023-12-11 15:38 | disposition home or self-care (01) ==
LOC: HO.LAB 15:37
PROVIDERS: PCP Internal Medicine; Visit Provider Internal Medicine
DX: R10.9 Unspecified abdominal pain (principal)
CPT/HCPCS: 81003

== ENCOUNTER 2024-01-04 12:09 | Outpatient (AMB) | payer BC, SELFPAY ==
--- NOTE | 2024-01-04 12:11 | A.OFFVIS_ITS ---
Vital Signs 01/04/24 12:12 Height 6 ft Weight 250 lb BMI 33.9 Intake Visit Reasons: OV - Right Knee Valgus OA Intake Note: is a 38 year old male who presents today for a follow up of his right knee s/p injury while playing softball on 08/14/23. He was prescribed an unloading brace. Patient reports that he has good days and bad days. Pain increases with acitivty, he takes ibuprofen which provides mild relief. He does feel that ralf brace has been helpful Allergies No Known Allergies Allergy (Verified 09/20/23 14:06) HPI HPI OV - Right Knee Valgus OA: Details: is a 38 year old male who presents today for a follow up of his right knee s/p injury while playing softball on 08/14/23. He was prescribed an unloading brace. Patient reports that he has good days and bad days. Pain increases with acitivty, he takes ibuprofen which provides mild relief. He does feel that the brace has been helpful but it is still not sufficient to alleviate all of his discomfort. He has pain daily in the medial aspect of his right knee. 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 He has tenderness to palpation over medial compartment of the right knee with mild effusion. He has a negative Nicole's and posterior and anterior drawer both negative. Results Reviewed Results Reviewed: His radiographs redemonstrate loss of medial joint space right knee with mild varus alignment. Assessment & Plan Assessment & Plan (1) Arthritis of right knee: Code(s): M17.11 - Unilateral primary osteoarthritis, right knee Category: Medical Plan: This is a 38-year-old gentleman with right knee medial compartment osteoarthritis. He feels his ability to engage in work and recreational activities as well as activities of daily living is compromised. He is dependent on an unloading brace which is helpful for small portion of the day. He has a ligamentously stable right knee and I recommend consideration of a medial compartment arthroplasty. I discussed this with him. I discussed the risks, benefits and alternatives including, but not limited to the risk of infection, stiffness, aseptic loosening, need for further surgery as well as medical complications associated with surgery. He feels he has exhausted other means and I think it is reasonable to pursue medial compartment arthroplasty on the right. I will have him speak with our nurse navigator and begin the preoperative clearance process. Orders: Orders XR knee RT 3V 01/04/24 M25.561 - Pain in right knee XR knee LT 1V 01/04/24 M25.569 - Pain in unspecified knee Coding Level of Care Code Est Pt Level 4 (56119) Diagnoses Arthritis of right knee M17.11
[2024-01-04 12:12] VITALS: BMI 33.9
== END 2024-01-04 13:09 | disposition home or self-care (01) ==
PROVIDERS: PCP Internal Medicine; Visit Provider Orthopaedic Surgery
DX: M17.11 Unilateral primary osteoarthritis, right knee (principal)
CPT/HCPCS: 99214

== ENCOUNTER 2024-01-04 12:09 | Outpatient (REF) | payer BC, SELFPAY | END 2024-01-04 12:10 | disposition home or self-care (01) | LOC: HO.HOSX 12:09 | PROVIDERS: PCP Internal Medicine; Visit Provider Orthopaedic Surgery | DX: M25.561 Pain in right knee (principal) | CPT/HCPCS: 73560; 73562 ==

== ENCOUNTER 2024-02-14 15:35 | Outpatient (REF) | payer BC, SELFPAY ==
--- NOTE | ~2024-02-14 | XR_ITS ---
EXAMINATION: XR ABDOMEN KUB CLINICAL INDICATION: abd pain COMPARISON: None available. TECHNIQUE: AP view of the abdomen. FINDINGS: The bowel gas pattern is normal with no evidence of ileus or obstruction. No unusual soft tissue calcifications are noted. The bones are unremarkable. Large amount of stool in the right colon. XR/XR abdomen 1V IMPRESSION: Large amount of stool in the right colon. Electronically signed by: Melinda Deal MD 02/15/2024 10:31 AM ANA GOLDMAN
--- OUTSIDE RECORDS SUMMARY | 2024-02-20 04:20 | XMS_ITS | Patient Health Record ---
Author Organization [facility] Address [address] [place] [id number] Care Team Providers Care Promotions Manager Name Role Phone Dameon Thomas MD Primary Care Provider Unavaila Jovani Hickman Unavailable [phone] Lee Quinn Unavailable Unavailable REASON FOR REFERRAL No Information SOCIAL HISTORY Sex Assigned At : Social History Observation Description Sex Assigned At Unknown PROBLEMS Problem Type ICD Code Onset Dates Problem Status W/U Status Risk SNOMED Code Notes Problem Dysphagia (R13.10) Active confirmed Dysphagia (96597686) Problem Esophageal obstruction (K22.2) Active confirmed Stricture of esophagus (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
== END 2024-02-14 15:36 | disposition home or self-care (01) ==
LOC: HO.XRAY 15:35
PROVIDERS: PCP Internal Medicine; Visit Provider Internal Medicine
DX: R10.9 Unspecified abdominal pain (principal)
CPT/HCPCS: 74018

== ENCOUNTER → 2024-04-11 08:54 | Outpatient (BNVA) | payer BC, SELFPAY | PROVIDERS: PCP Internal Medicine | DX: Z01.818 Encounter for other preprocedural examination (principal) ==

== ENCOUNTER → 2024-04-18 13:45 | Outpatient (BNV) | payer BC, SELFPAY | PROVIDERS: PCP Internal Medicine; Visit Provider Internal Medicine Cardiovascular Disease | DX: Z01.810 Encounter for preprocedural cardiovascular examination (principal) | CPT/HCPCS: 93010 ==

== ENCOUNTER 2024-05-07 14:45 | Outpatient (REF) | payer SELFPAY ==
--- OUTSIDE RECORDS SUMMARY | 2024-05-07 19:56 | XMS_ITS | Patient Health Record ---
Author Organization [facility] Address [address] [place] [address] Care Team Providers Care Body Team Member Name Role Phone Dameon Thomas MD Primary Care Provider Unavaila Jovani Hickman Unavailable [phone] Lee Quinn Unavailable Unavailable REASON FOR REFERRAL No Information SOCIAL HISTORY Sex Assigned At : Social History Observation Description Sex Assigned At Unknown PROBLEMS Problem Type ICD Code Onset Dates Problem Status W/U Status Risk SNOMED Code Notes Problem Esophageal obstruction (K22.2) Active confirmed Stricture of esophagus (06003625) Problem Dysphagia (R13.10) Active confirmed Dysphagia (41283413) PLAN OF TREATMENT Future Test Test Name Order Date UPPER GI ENDOSCOPY BALL[place]ON DILATION OF ESOPH 03/02/2020 Insurance Providers Payer Name Payer Address Payer Phone Subscriber Number Group Number Insured Name Patient Relationship to Insured Coverage Start Date Coverage End Date [facility] [place] PROFESSIONAL CLAIMS [address] [place] [address] [id number] ADALBERTO YOUNG Self - patient is the insured
--- OUTSIDE RECORDS SUMMARY | 2024-05-07 19:56 | XMS_ITS | Clinical Summary ---
Author Organization [facility] Address [phone] [facility] [place] [address] Care Team Providers Care Auto Heater Mechanic Name Role Phone Dameon Thomas MD Primary Care Provider Allergies No known active allergies Medications No known medications Active Problems No known active problems Social History Tobacco Use Types Packs/Day Years Used Date Smoking Tobacco: Never Smokeless Tobacco: Never Alcohol Use Standard Drinks/Week Comments Never 0 (1 standard drink = 0.6 oz pur e alcohol) Education Answer Date Recorded Are you interested in more education? Not on keaton e 07/07/2022 Are you concerned about learning? Not on file 07/07/2022 No 07/07/2022 No 07/07/2022 Digital Access Answer Date Recorded No 08/04/2022 No 08/04/2022 No 08/04/2022 Reliable internet access at home? Not on file 08/04/2022 Device with a working camera? Not on file Sex and Gender Information Value Date Recorded Sex Assigned at Not on file Gender Identity Not on file Sexual Orientation Not on file Last Filed Vital Signs Vital Sign Reading Time Taken Comments Blood Pressure 128/80 10/02/2020 3:19 PM EDT Pulse 74 10/02/2020 3:19 PM EDT Temperature 36.4 ??C (97.6 ??F) 10/02/2020 3:19 PM ED T Respiratory Rate - - Oxygen Saturation 98% 10/02/2020 3:19 PM EDT Inhaled Oxygen Concentration - - Weight 104.3 kg (230 lb) 10/02/2020 3:19 PM EDT Height 185.4 cm (6' 1 ) 10/02/2020 3:19 PM EDT Body Mass Index 30.34 10/02/2020 3:19 PM EDT Plan of Treatment Health Maintenance Due Date Last Done Comments Adult Td,Tdap Booster 1984 LIPID PANEL 1984 DEPRESSION SCREENING 1996 HEPATITIS B SCREENING 2002 HEPATITIS C SCREENING 2002 HIV ONE-TIME SCREENING (18-6 5 YEARS) 2002 HEPATITIS B VACCINES (1 of 3 - 19+ 3-dose series) 11/22/2003 INFLUENZA VACCINE (#1) 2023 COVID-19 VACCINE (3 2023-2 5 season) 2023 05/07/2020, 04/02/2020 SMOKING STATUS SCREENING (On ce After 26 Yrs) Completed 10/02/2020 HEPATITIS A VACCINES Aged Out No long er eligible based on patient's age to complete this topic HIB VACCINES Aged Out No longer eligi ble based on patient's age to complete this topic MENINGOCOCCAL VACCINES (ACWY) Aged Out No longer eligible based on patient's age to complete this topic PNEUMOCOCCAL VACCINES (0-49 years) Aged Out No longer eligible b ased on patient's age to complete this topic Medical Devices Not on file Care Teams Auto Heater Mechanic Relationship Specialty Start Date End Date Dameon Thomas MD [address] [place] [address] Dr [place], [place]MA [address] PCP - General 10/02/20 Additional Source Comments The information contained in this document represents components of the legal health record. It is not the complete legal health record.[facility]
== END 2024-05-07 14:46 | disposition home or self-care (01) ==
LOC: HO.HOSX 14:45
PROVIDERS: PCP Internal Medicine; Visit Provider Physician Assistant
DX: Z02.4 Encounter for examination for driving license (principal)

== ENCOUNTER 2024-05-08 08:56 | Outpatient (AMB) | payer BC, SELFPAY ==
--- NOTE | 2024-05-08 09:00 | A.OFFVIS_ITS ---
Vital Signs 05/08/24 09:12 Height 6 ft Weight 250 lb BMI 33.9 Intake Visit Reasons: Pre-Op: R Knee UKA w/NE 05/13/24 Intake Note: is a 38 year old male who presents today for a preoperative RT Knee UKA, DOS 05/13/[address] Castillo. Pain management agreement reviewed and signed. Allergies No Known Allergies Allergy (Verified 05/08/24 09:12) Medication List - Last Reconciled 05/08/24 by Adiel Collins PA-C loratadine (Claritin) 10 mg PO DAILY PRN walker Folding Front wheeled walker DURATION 99 DAYS HPI Comments Details: Mr Pierce presents to the office today for preop visit. He is scheduled for right total Unicimpartment knee arthroplasty with Dr. Castillo. He continues to have ongoing pain and difficulty with ambulation in the right knee, which is affecting his quality of life; therefore, he has elected to move forward with surgery. [facility] Medical History (Updated 04/18/24 @ 13:05 by Felicity Fleming RN) Arthritis GERD (gastroesophageal reflux disease) Hiatal hernia Seasonal allergies Surgical History Hx of nasal septoplasty Hx of wisdom tooth extraction Hx of oral surgery History of esophagogastroduodenoscopy (EGD) Social History Are you a primary healthcare associate to a significant other at home: No Do you presently have visiting nurse or other home services: No Alcohol intake: current Alcohol intake frequency: a few times a month Patient Tobacco Use Status: Current someday Tobacco user Tobacco use type: Cigar service: No Current occupational status: employed 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 0-130 degrees of motion of the right knee with mild varus bilateral alignment. He has tenderness to palpation over medial compartment of the right knee with mild effusion. He has a negative Nicole's and posterior and anterior drawer both negative. Results Reviewed Results Reviewed: Xrays were obtained in the office today and personally reviewed by me of the right knee for surgical planning Assessment & Plan Assessment & Plan (1) Arthritis of right knee: Code(s): M17.11 - Unilateral primary osteoarthritis, right knee Category: Medical Plan: I discussed in detail the procedure and what to expect pre and post operatively. We discussed the risks, benefits and alternatives to the surgery as well as the rehabilitation course. The risks; which include, but are not limited to infection, bleeding, nerve injury, ongoing pain, swelling, and stiffness, perioperative risk of injury to bones and soft tissues, and blood clots. I?ve answered all questions and with their understanding they have consented to move forward with Right unicompartment knee arthroplasty with Dr. Castillo Orders: Orders XR knee RT 3V Today M17.11 - Unilateral primary osteoarthritis, right knee PT Evaluation and Treatment Today Z96.651 - Presence of right artificial knee joint XR knee LT 1V Today M25.562 - Pain in left knee Coding Level of Care Code Est Pt Level 3 (36365) Complex EM visit Add On G2211 Diagnoses Arthritis of right knee M17.11
[2024-05-08 09:12] VITALS: BMI 33.9
--- OUTSIDE RECORDS SUMMARY | 2024-05-08 09:32 | XMS_ITS | Clinical Summary ---
Author Organization [facility] Address [phone] [facility] [place] [address] Care Team Providers Care Bench Carpenter Name Role Phone Dameon Thomas MD Primary [...] Medical Devices Not on file Care Teams Bench Carpenter Relationship Specialty Start Date End Date Dameon Thomas MD [address] [place] [address] Dr [place], [place] [address] PCP - General 10/02/20 Additional Source Comments The information contained in this document represents components of the legal health record. It is not the complete legal health record.[facility]
--- OUTSIDE RECORDS SUMMARY | 2024-05-08 09:32 | XMS_ITS | Patient Health Record ---
Author Organization [facility] Address [address] [place] [phone] Care Team Providers Care Mill Worker Name Role Phone Dameon Thomas MD Primary Care Provider Unavaila Jovani Hickman Unavailable [phone] Lee Quinn Unavailable Unavailable REASON FOR REFERRAL No Information SOCIAL HISTORY Sex Assigned At : Social History Observation Description Sex Assigned At Unknown PROBLEMS Problem Type ICD Code Onset Dates Problem Status W/U Status Risk SNOMED Code Notes Problem Esophageal obstruction (K22.2) Active confirmed Stricture of esophagus (32174321) Problem Dysphagia (R13.10) Active confirmed Dysphagia (51528847) PLAN OF TREATMENT Future Test Test Name Order Date UPPER GI ENDOSCOPY BALL[place]ON DILATION OF ESOPH 03/02/2020 Insurance Providers Payer Name Payer Address Payer Phone Subscriber Number Group Number Insured Name Patient Relationship to Insured Coverage Start Date Coverage End Date [facility] [place] [address] [place] [address] [phone] [id number] ADALBERTO YOUNG Self - patient is the insured
== END 2024-05-08 10:07 | disposition home or self-care (01) ==
PROVIDERS: PCP Internal Medicine; Visit Provider Physician Assistant
DX: M17.11 Unilateral primary osteoarthritis, right knee (principal)
CPT/HCPCS: 99024

== ENCOUNTER → 2024-05-08 08:58 | Outpatient (BNV) | payer SELFPAY | PROVIDERS: Absent Provider Internal Medicine; PCP Internal Medicine; Visit Provider Radiology Diagnostic Radiology | DX: M17.11 Unilateral primary osteoarthritis, right knee (principal) | CPT/HCPCS: 73562 ==

== ENCOUNTER 2024-05-08 09:40 | Outpatient (REF) | payer SELFPAY ==
--- NOTE | ~2024-05-08 | XR_ITS ---
CLINICAL HISTORY: M17.11 - Unilateral primary osteoarthritis, right knee standing AP view of both knees with 2 additional views of the right knee. Comparison: DX/SR - XR KNEE LT 1V - 01/04/24 12:38 EDT DX/SR - XR KNEE RT 3V - 01/04/24 12:38 EDT Findings: No fractures or dislocations. No significant loss of joint space, osteophytes, or erosions. There are mild osteoarthritic changes with a small suprapatellar effusion. No radiopaque foreign body. IMPRESSION: There are mild osteoarthritic changes with a small suprapatellar effusion. This document has been electronically signed by: Mc Tyler MD on 05/08/2024 12:59:23
[2024-05-08 10:09] LABS: MANUAL DIFF FLAG NO
[2024-05-08 10:52] LABS: Eosinophils Absolute Auto 0.1 X10*3/uL (0.0-0.4); Eosinophils Percent Auto 3.8 % (0-4); Hematocrit 46.8 % (42.0-52.0); Imm Gran Abs Auto 0.01 X10*3/uL (0.00-0.03); Imm Gran Pct Auto 0.3 % (0.0-0.4); Lymphocytes Absolute Auto 1.2 X10*3/uL (1.2-4.9); Lymphocytes Percent Auto 39.5 % (20-40); Mean Corpuscular HGB Conc 34.2 g/dl (31.0-36.0); Mean Corpuscular Hemoglobin 30.5 pg (27.0-33.0); Mean Corpuscular Volume 89.1 fL (80.0-98.0); Mean Platelet Volume 11.2 fL (9.4-12.4); Monocytes Absolute Auto 0.2 X10*3/uL (0.1-1.2); Monocytes Percent Auto 7.6 % (2-11); Neutrophils Absolute Auto 1.4 x10*3/uL (2.0-8.3); Neutrophils Percent Auto 47.8 % (45-73); Platelet Count 201 X10*3/uL (160-400); Red Blood Count 5.25 X10*6/uL (4.60-5.80); Red Cell Distribution Width 12.4 % (11.0-16.0); White Blood Count 2.9 X10*3/uL (4.8-10.8)
--- OUTSIDE RECORDS SUMMARY | 2024-05-08 11:05 | XMS_ITS | Clinical Summary ---
Author Organization [facility] Address [phone] [place] [address] Care Team Providers Care Radiation Protection Engineer Name Role Phone Dameon Thomas MD Primary [...] Medical Devices Not on file Care Teams Radiation Protection Engineer Relationship Specialty Start Date End Date Dameon Thomas MD [address] [place] [address] Dr [place], [place] [address] PCP - General 10/02/20 Additional Source Comments The information contained in this document represents components of the legal health record. It is not the complete legal health record.[facility]
[2024-05-08 11:26] LABS: Appearance Urine Clear; Color Urine Yellow; Glucose Urine UA Negative (Negative); Leukocyte Esterase Urine Negative (Negative); Nitrite Urine Negative (Negative); PH 6.5 (5.0-9.0); Urine Blood Negative (Negative); Urine Ketones Negative (Negative); Urine Protein Negative (Neg-Trace)
[2024-05-08 11:34] LABS: Alanine Aminotransferase 33 U/L (0-40); Albumin Level 4.3 g/dL (3.5-5.0); Alkaline Phosphatase 58 U/L (39-117); Anion Gap 12 (12-20); Aspartate Amino Transferase 26 U/L (5-37); Bilirubin Total 0.7 mg/dL (0.0-1.0); Blood Urea Nitrogen 17 mg/dL (9-16); Calcium 9.4 mg/dL (8.4-10.2); Carbon Dioxide 28 mmol/L (22-29); Chloride 104 mmol/L (96-108); Cholesterol 193 mg/dL (<200); Estimated Glomerular Filt Rate > 60; Glucose Fasting 101 mg/dL (60-99); HDL Cholesterol 41 mg/dL (>40); LDL Cholesterol Calculated 136 mg/dL (<100); Potassium 4.4 mmol/L (3.3-5.1); Sodium 140 mmol/L (135-145); Total Protein 7.3 g/dL (6.5-8.0); Triglycerides 82 mg/dL (<150)
== END 2024-05-08 09:41 | disposition home or self-care (01) ==
LOC: HO.HOSX 09:40
PROVIDERS: Absent Provider Internal Medicine; PCP Internal Medicine; Visit Provider Physician Assistant
DX: Z01.818 Encounter for other preprocedural examination (principal); M17.11 Unilateral primary osteoarthritis, right knee; Z00.00 Encounter for general adult medical examination without abnormal findings
CPT/HCPCS: 36415; 73562; 80053; 80061; 81003; 85025

== ENCOUNTER 2024-05-13 06:59 | Day surgery (SDC) | payer BC, SELFPAY ==
--- OUTSIDE RECORDS SUMMARY | 2024-03-13 08:02 | XMS_ITS | Patient Health Record ---
Author Organization [facility] Address [address] [place] [id number] Care Team Providers Care Speeder Operator Name Role Phone Dameon Thomas MD Primary Care Provider Unavaila Jovani Hickman Unavailable [phone] Lee Quinn Unavailable Unavailable REASON FOR REFERRAL No Information SOCIAL HISTORY Sex Assigned At : Social History Observation Description Sex Assigned At Unknown PROBLEMS Problem Type ICD Code Onset Dates Problem Status W/U Status Risk SNOMED Code Notes Problem Dysphagia (R13.10) Active confirmed Dysphagia (73152607) Problem Esophageal obstruction (K22.2) Active confirmed Stricture of esophagus (70507738) PLAN OF TREATMENT Future Test Test Name Order Date UPPER GI ENDOSCOPY [place] DILATION OF ESOPH 03/02/2020 Insurance Providers Payer Name Payer Address Payer Phone Subscriber Number Group Number Insured Name Patient Relationship to Insured Coverage Start Date Coverage End Date [facility] [place] [employer] [place]S [address] [place] [address] [id number] ADALBERTO YOUNG Self - patient is the insured
--- NOTE | 2024-04-18 | ECG_ITS ---
Test Reason : preop Blood Pressure : */* mmHG Vent. Rate : 64 BPM Atrial Rate : 64 BPM P-R Int : 164 ms QRS Dur : 80 ms QT Int : 382 ms P-R-T Axes : 31 18 6 degrees QTcB Int : 394 ms Normal sinus rhythm Normal ECG No previous ECGs available Referred By: Makayla Gomez Electronically Signed By: Daniel Irwin
[2024-04-18 13:09] VITALS: BP 120/81; PULSE 67; RESP 20; O2SAT 98; BMI 33.2
--- NOTE | 2024-04-18 13:22 | HO.ANESPROP2 ---
Documented by User: Makayla Gomez NP 05/12/24 08:32 HPI - Anesthesia Eval Consult details Narrative: 38yo M for Right Knee Replacement Uni-Compartmental, 05/13/24 (injury 08/2023) No recent illness No CP/SOB with regular activity. Limited by pain GERD: Tums PRN PMFSH Active Problems Active Problems: All Active Problems Tear of medial meniscus of right knee (Acute) Arthritis of right knee (Acute) Impacted foreign body in esophagus (Acute) GERD (gastroesophageal reflux disease) (Acute) Past Medical History Medical History History of wasserman Arthritis GERD (gastroesophageal reflux disease) Hiatal hernia Seasonal allergies Family History Family history of problems with anesthesia: No Surgical History Surgical History Hx of nasal septoplasty Hx of wisdom tooth extraction Hx of oral surgery History of esophagogastroduodenoscopy (EGD) History of Problems with Anesthesia: No Social History Social History Are you a primary care nurse rn to a significant other at home: No Do you presently have visiting nurse or other home services: No Alcohol intake: current Alcohol intake frequency: a few times a month Patient Tobacco Use Status: Current someday Tobacco user Tobacco use type: Cigar Use of substances other than those prescribed or required for medical reasons: No Have you been hit, kicked, punched, or otherwise hurt by someone within the past year? 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 Allergies Allergy/AdvReac Type Severity Reaction Status Date / Time No Known Allergies Allergy Verified 05/13/24 07:09 Home Medications ?Medication ?Instructions ?Recorded ?Confirmed ?Last Taken ?Type loratadine 10 mg tablet (Claritin) 10 mg PO DAILY PRN Allergy Symptoms 09/20/23 05/13/24 Unknown History Exam Height,Weight and Vital Signs: Height 6 ft Weight 111.13 kg Last Vital Signs Pulse 67 04/18/24 13:09 Resp 20 04/18/24 13:09 BP 120/81 04/18/24 13:09 Pulse Ox 98 04/18/24 13:09 O2 Del Method Room Air 04/18/24 13:09 Pertinent Lab Results Pertinent Lab Results: Lab Results 04/18/24 04/18/24 05/08/24 Range/Units 13:20 13:49 09:56 WBC 3.2 L (4.8-10.8) X10*3/uL RBC 5.31 (4.60-5.80) X10*6/uL Hgb 16.4 (14.0-18.0) g/dl Hct 47.4 (42.0-52.0) % MCV 89.3 (80.0-98.0) fL MCH 30.9 (27.0-33.0) pg MCHC 34.6 (31.0-36.0) g/dl RDW 12.2 (11.0-16.0) % Plt Count 218 (160-400) X10*3/uL MPV 11.0 (9.4-12.4) fL Absolute Nucleated RBC 0.000 (0.0-0.012) X10*3/uL Nucleated RBC % (auto) 0.0 (0.0-0.2) /100WBC Sodium 141 (135-145) mmol/L Potassium 4.4 (3.3-5.1) mmol/L Chloride 104 (96-108) mmol/L Carbon Dioxide 30 H (22-29) mmol/L Anion Gap 11 L (12-20) BUN 14 (9-16) mg/dL Creatinine 0.81 (0.5-1.4) mg/dL Estim Creat Clear Calc 157.6 Estimated GFR > 60 Random Glucose 95 (60-115) mg/dL Calcium 9.3 (8.4-10.2) mg/dL Nasal Screen MRSA (PCR) NEGATIVE (Negative) Nasal S. aureus Screen NEGATIVE (Negative) Nasal MRSA/S.aureus Interp SEE NOTE Blood Type AB Positive Antibody Screen NEGATIVE Narrative Narrative: EKG 04/2024 Vent. Rate : 64 BPM Atrial Rate : 64 BPM P-R Int : 164 ms QRS Dur : 80 ms QT Int : 382 ms P-R-T Axes : 31 18 6 degrees QTcB Int : 394 ms Normal sinus rhythm Normal ECG No previous ECGs available Airway Mallampati Class: III TM Dist: >3cm Neck ROM: Full Loose/Missing/Broken Teeth: No Heart: RRR Lungs: CTAB Assessment and Plan Assessment Anesthesia Assessment: Anesthesia Plan Discussed and PAT Visit Final Anesthetic Review Family History of Problems with Anesthesia: No History of Problems with Anesthesia: No Documented by User: Janee Pastrana MD 05/13/24 08:40 [facility] Past Medical History Medical History History of wasserman Arthritis GERD (gastroesophageal reflux disease) Hiatal hernia Seasonal allergies Surgical History Surgical History Hx of nasal septoplasty Hx of wisdom tooth extraction Hx of oral surgery History of esophagogastroduodenoscopy (EGD) Social History Social History Are you a primary care nurse rn to a significant other at home: No Do you presently have visiting nurse or other home services: No Alcohol intake: current Alcohol intake frequency: a few times a month Patient Tobacco Use Status: Current someday Tobacco user Tobacco use type: Cigar Use of substances other than those prescribed or required for medical reasons: No Have you been hit, kicked, punched, or otherwise hurt by someone within the past year? 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 Meds Allergies Allergy/AdvReac Type Severity Reaction Status Date / Time No Known Allergies Allergy Verified 05/13/24 07:09 Home Medications ?Medication ?Instructions ?Recorded ?Confirmed ?Last Taken ?Type loratadine 10 mg tablet (Claritin) 10 mg PO DAILY PRN Allergy Symptoms 09/20/23 05/13/24 Unknown History Assessment and Plan Final Anesthetic Review NPO: Yes ASA Class: II Final Preanesthetic Review: No Changes in Pt Med Stat, Meds/Allgs Chart Reviewed, Consent Obtained/Reviewed and Anes Risks/Benef Reviewed Patient Risk: Low Procedure Risk: Intermediate Anesthetic Plan Anesthetic Plan: Spinal and Regional Block
[2024-04-18 14:25] LABS: Hematocrit 47.4 % (42.0-52.0); Hemoglobin 16.4 g/dl (14.0-18.0); Mean Corpuscular HGB Conc 34.6 g/dl (31.0-36.0); Mean Corpuscular Hemoglobin 30.9 pg (27.0-33.0); Mean Corpuscular Volume 89.3 fL (80.0-98.0); Platelet Count 218 X10*3/uL (160-400); Red Blood Count 5.31 X10*6/uL (4.60-5.80); Red Cell Distribution Width 12.2 % (11.0-16.0); White Blood Count 3.2 X10*3/uL (4.8-10.8)
[2024-04-18 14:50] LABS: Anion Gap 11 (12-20); Blood Urea Nitrogen 14 mg/dL (9-16); Calcium 9.3 mg/dL (8.4-10.2); Carbon Dioxide 30 mmol/L (22-29); Chloride 104 mmol/L (96-108); Creatinine Clr Calc Pharmacy 157.6; Estimated Glomerular Filt Rate > 60; Glucose Random 95 mg/dL (60-115); Potassium 4.4 mmol/L (3.3-5.1); Sodium 141 mmol/L (135-145)
[2024-04-18 16:29] LABS: MRSA Nasal PCR NEGATIVE (Negative); SA Nasal PCR NEGATIVE (Negative)
[2024-05-13] VITALS (14 sets, daily range): BP systolic 88–144; BP diastolic 46–93; PULSE 60–89; RESP 12–20; TEMP 36.1–36.5; O2SAT 93–97; BMI 33.6; BMI 33.9
--- NOTE | ~2024-05-13 | XR_ITS ---
EXAMINATION: XR KNEE, RIGHT CLINICAL INFORMATION: UKA rt COMPARISON: May 08, 2024. TECHNIQUE: Two views of the right knee. FINDINGS: There is a metallic prosthesis in the medial femoral condyle and medial tibial plateau well-seated in the osseous structures. Skin marie in the anterior knee/patella tendon. Suprapatellar bursa joint effusion, small to moderate volume. Subcutaneous emphysema/cast likely post surgical. XR/XR knee RT 2V IMPRESSION: Status post medial compartment hemiarthroplasty/unicompartmental prosthesis, right knee. Electronically signed by: Michael Hernandez MD 05/13/2024 02:01 PM [facility]
--- NOTE | 2024-05-13 07:33 | MHC.SHP ---
Pre-Procedural Eval Section A - 24 Hr Update-Section A only Date of Service: 05/13/24 The patient is an INPATIENT: No Changes since office visit: No Cold of Flu in the past 2 weeks, No New Medical Problems, No Changes in Medication and No Patient answered all questions The patient has been examined within 24 hours of the surgical procedure. The History & Physical has been completed within 30 days and I have reviewed it.: Yes Section B - Complete if H&P > 30 days Chief Complaint: RT UKA Allergies: Allergies Allergy/AdvReac Type Severity Reaction Status Date / Time No Known Allergies Allergy Verified 05/13/24 07:09 Plan I have reviewed the history and physical and performed a pertinent physical examination on my patient. No changes have occurred unless specified. Time Spent With Patient Time: Total time managing care of this patient today ____ minutes.
[2024-05-13] MEDS: Lactated Ringers 1,000 ML 100 ML IVCONT ×2 (07:54→15:14)
[2024-05-13 07:59] LABS: Hemoglobin 16.1 g/dl (14.0-18.0)
--- NOTE | 2024-05-13 08:01 | PC.NURSE ---
Patch of eczema/dry skin on right knee cap. Chronic for patient. No open areas, just dry/red skin. No signs of infection present. Dr. Castillo at bedside to assess. No issues at this time, may proceed with surgery. Anesthesia Dr. Pastrana and OR nurse also aware.
[2024-05-13] MEDS: ceFAZolin Sodium/Dextrose,Iso 2 GM/50 ML PIGGYBACK IV ×2 (09:10→15:14)
--- NOTE | 2024-05-13 10:57 | P.DS_ITS ---
DS: Providers Provider Date of Service: 05/14/24 Date of discharge: 05/14/24 Primary care physician: Dameon Thomas MD DS: Summary Hospital Course Hospital Course: The patient underwent a successful right unicompartment knee arthroplasty, they were transferred to PACU and then to the floor to recover. During their stay, their vitals were stable, afebrile at 98.8. Labs were unremarkable, H/H 13.8/40.9. POD 1 they were started on Aspirin 325mg po bid for DVT ppx, they also received Physical Therapy services twice a day. Prior to discharge, their dressing was clean dry and intact, and the plan was to be discharged home with VNA services. Time Attestation Discharge Coordination Time (in mins): 30 Quality: Safe Use of Opioids Does Pt have an Active Cancer Diagnosis on the Problem List?: No Quality: Stroke Does the patient have a stroke diagnosis?: No Physical Exam Vital Signs: Vital Signs: Last Vital Signs Temp 97.7 F 05/13/24 07:45 Pulse 74 05/13/24 07:45 Resp 16 05/13/24 07:45 BP 140/93 H 05/13/24 07:45 Pulse Ox 97 05/13/24 07:45 O2 Del Method Room Air 05/13/24 07:45 BMI result Body Mass Index 33.6 Const: General: cooperative, healthy appearing and no acute distress Resp: Effort & Inspection: normal respiratory effort and able to speak in complete sentences Cardio: Rate: regular rate Peripheral pulses: Peripheral pulses 2+ throughout GI: Palpation (GI): Soft to palpation Skin: Lesions: no lesions Rashes: no rashes Extrem: Other: right knee dressing is c/d/i. Able to dorsi/plantar flex. Calf is supple and nontender. Sensation intact. Pedal pulse intact. DS: Data Data Completed and Pending Labs on day of discharge: Laboratory Results - last 24 hr 05/13/24 07:34 Hgb 16.1 Hct 46.0 Discharge Plan Discharge Patient Disposition: Home Health Service Referrals: Adiel Collins PA-C [Physician Cellophane Press Operator] - 05/29/24 1:00 pm Discharge Medications: New acetaminophen 325 mg Tablet 650 mg PO Q6H PRN (Reason: Pain, Mild 1-3,Fever,Headache) 30 Days Qty: 240 0RF aspirin 325 mg Tablet 325 mg PO BID 42 Days Qty: 84 0RF celecoxib 200 mg Capsule 200 mg PO BID 30 Days Qty: 60 0RF sennosides [Senna Lax] 8.6 mg Tablet 17.2 mg PO BEDTIME 30 Days Qty: 60 0RF oxycodone 5 mg Tablet 5 mg PO Q4H PRN (Reason: Pain, Moderate(Pain Scale 4-6)) 7 Days Qty: 42 0RF Rx Instructions: Partial Fill upon patient request. Continued (DME) walker Misc See Rx Instructions .MEDSUPPLY Qty: 1 0RF Rx Instructions: Folding Front wheeled walker DURATION 99 DAYS loratadine [Claritin] 10 mg tablet 10 mg PO DAILY PRN (Reason: Allergy Symptoms) Discharge Orders: Discharge Order (Routine); Ordered 05/14/24 Ordered By: Kelsea Hurtado Diet: Advance to usual diet Activity on Discharge: Use cane or walker Activity Restrictions/Additional Instructions: Physical Therapy for ROM 0-120, quad strength, gait training. Use walker for ambulation Limit stair climbing, No shower, No tub bath, No driving Continue anticoagulant x 6 weeks Keep Aquacel dressing clean, dry and intact. Follow up with orthopedics in 2 weeks Print Language: [place]
--- NOTE | 2024-05-13 10:58 | P.F2F_ITS ---
Service Date Service Date: 05/13/24 Encounter Date of encounter: 05/14/24 Reasons for Services Signs and symptoms assessed: s/p right unicompartment knee arthroplasty Pt. is considered homebound due to recent surgery. Unable to drive, poor balance, poor gait mechanics. Reason for physical therapy: home safety and mobility, therapeutic exercises, restore joint function, gait/transfer training and ADL training Homebound: Leaving the home is medically contraindicated at this time without the asist of a device and/or another person due th the listed conditions above and below. Reason homebound: unsteady gait / fall risk, leg weakness, pain with ambulation, poor balance / fall risk and unable to drive Certification: Based on the above findings, I certify that this patient is confined to the home and needs intermittent nursing home care, physical therapy and/or speech therapy, or continues to need occupational therapy. The patient is under my care, and I have initiated the establishment of the plan of care. The patient will be followed by a physician who will periodically review the plan of care. Time Spent With Patient Time: Total time managing care of this patient today ____ minutes.
--- NOTE | 2024-05-13 11:55 | P.BOP_ITS ---
Brief Operative Note Date of Service: 05/13/24 Pre-op diagnosis: Right knee OA Post-op diagnosis: same Procedure: Right UKA Implants: Biomet 5H9, cemented Surgeon: Marc Catsillo MD Anesthesia: MAC, regional and spinal Was an Inspector Grain Mill Products used for this Procedure?: Yes Inspector Grain Mill Products: Adiel Collins Estimated blood loss (mL): 100 Tourniquet time (min): 120 IV fluids (mL): 1,200 Pathology: other Condition: stable Disposition: PACU
--- NOTE | 2024-05-13 12:36 | PHA.MEDREC ---
Addendum entered by Bijan Brady RPh 05/13/24 12:37: Reviewed by [facility] Original Note: Pharmacy Consult ? Medication Reconciliation Pharmacy has completed the medication reconciliation. Reviewed med rec done by nursing.
[2024-05-13] MEDS: 0.9 % Sodium Chloride Flush 3 ML SYRINGE IVFLUSH ×2 (15:14→21:17)
[2024-05-13] MEDS: oxyCODONE HCl Immed Release 5 MG TABLET PO (16:22)
[2024-05-13] MEDS: HYDROmorphone HCl 0.5 MG/0.5 ML SYRINGE 0.25 MG IVPUSH ×2 (18:04→23:00)
[2024-05-13] MEDS: Sennosides 8.6 MG TABLET 17.2 MG PO (21:08)
[2024-05-13] MEDS: oxyCODONE HCl ER 10 MG TAB.ER.12H PO (21:08)
[2024-05-13] MEDS: Celecoxib 200 MG CAPSULE PO (21:08)
[2024-05-13] MEDS: ondansetron HCL 4 MG/2 ML VIAL IVPUSH (21:32)
[2024-05-14] MEDS: Lactated Ringers 1,000 ML 100 ML IVCONT (01:43)
[2024-05-14] MEDS: oxyCODONE HCl Immed Release 5 MG TABLET PO ×3 (01:45→12:06)
[2024-05-14 03:00] VITALS: BP 122/60; PULSE 91; RESP 16; TEMP 36.6; O2SAT 95
[2024-05-14 06:03] LABS: MANUAL DIFF FLAG NO
[2024-05-14 06:13] LABS: Basophils Percent Auto 0.1 % (0-2); Hematocrit 40.9 % (42.0-52.0); Hemoglobin 13.8 g/dl (14.0-18.0); Imm Gran Abs Auto 0.02 X10*3/uL (0.00-0.03); Imm Gran Pct Auto 0.2 % (0.0-0.4); Lymphocytes Absolute Auto 0.8 X10*3/uL (1.2-4.9); Mean Corpuscular HGB Conc 33.7 g/dl (31.0-36.0); Mean Corpuscular Hemoglobin 30.6 pg (27.0-33.0); Mean Corpuscular Volume 90.7 fL (80.0-98.0); Monocytes Absolute Auto 0.8 X10*3/uL (0.1-1.2); Monocytes Percent Auto 9.4 % (2-11); Neutrophils Absolute Auto 6.7 x10*3/uL (2.0-8.3); Neutrophils Percent Auto 80.3 % (45-73); Platelet Count 191 X10*3/uL (160-400); Red Blood Count 4.51 X10*6/uL (4.60-5.80); Red Cell Distribution Width 12.2 % (11.0-16.0); White Blood Count 8.4 X10*3/uL (4.8-10.8)
[2024-05-14 06:24] LABS: Anion Gap 10 (12-20); Blood Urea Nitrogen 16 mg/dL (9-16); Calcium 8.7 mg/dL (8.4-10.2); Carbon Dioxide 27 mmol/L (22-29); Chloride 106 mmol/L (96-108); Creatinine Clr Calc Pharmacy 169.6; Estimated Glomerular Filt Rate > 60; Glucose Fasting 132 mg/dL (60-99); Potassium 4.2 mmol/L (3.3-5.1); Sodium 139 mmol/L (135-145)
[2024-05-14] MEDS: Celecoxib 200 MG CAPSULE PO (06:52)
[2024-05-14] MEDS: oxyCODONE HCl ER 10 MG TAB.ER.12H PO (06:52)
[2024-05-14 07:00] VITALS: BP 119/69; PULSE 86; RESP 16; TEMP 37.1; O2SAT 92
[2024-05-14] MEDS: ondansetron HCL 4 MG/2 ML VIAL IVPUSH (07:32)
--- NOTE | 2024-05-14 08:52 | MHC.CM.PN ---
Patient lives in a home w/ his . Functionally independent. Denies use of services or DME. PCP Dameon Thomas MD No HCP. CM provided education and offered assistance. Patient reports he would want his to make medical decisions for him if needed, but declines to fill out HCP form at this time. DP: Cleared to [place] home w/ new [facility], per patient preference, for PT. to transport.
--- NOTE | 2024-05-14 10:28 | HO.POSTANES ---
Post Anesthesia Evaluation Post Anesthesia Evaluation Date of Service: 05/14/24 Vital Signs: Vital Signs Temp Pulse Resp BP Pulse Ox O2 Del Method 05/14/24 07:00 98.8 F 86 16 119/69 92 Room Air 05/14/24 03:00 97.9 F 91 16 122/60 95 Room Air 05/13/24 23:00 97.7 F 89 16 119/62 93 Room Air Anesthesia: Spinal Mental Status: Awake Pain Control: Satisfactory Nausea/Vomiting: None Hydration: Adequate Anesthesia-Related Issues: No Anes. Related Issues
[2024-05-14 11:00] VITALS: BP 120/69; PULSE 88; RESP 18; TEMP 37.2; O2SAT 92
[2024-05-14] MEDS: Aspirin 325 MG TABLET PO (12:06)
[2024-05-14 14:34] VITALS: BP 114/66; PULSE 96; RESP 18; TEMP 36.3; O2SAT 94
--- NOTE | 2024-05-25 14:55 | W.PM.OPN ---
Operative Note Operative Note Date of Service: 05/13/24 Narrative: Date of Service: 05/13/24 Pre-op diagnosis: Right knee OA Post-op diagnosis: same Procedure: Right UKA Implants: Biomet 5H9, cemented Surgeon: Marc Castillo MD Anesthesia: MAC, regional and spinal Was an Principal Network Engineer used for this Procedure?: Yes Principal Network Engineer: Adiel Collins Estimated blood loss (mL): 100 Tourniquet time (min): 120 IV fluids (mL): 1,200 Pathology: other Condition: stable Disposition: PACU Procedure in detail: The patient was brought to the operating room and prepped and draped in standard sterile fashion. A time-out was called to identify proper site proper procedure proper surgeon and IV antibiotics were administered. 1 g of IV tranexamic acid was administered. I began by making a medial incision to the retinaculum and performed a medial parapatellar arthrotomy. I extended the arthrotomy up to the quad tendon. The patella was protected with a thom in the notch and the knee was flexed up.The knee was in varus and tight. There were G1/G2 changes of the PFJ. I placed my extension guide and, in alignement with the tibial tubercle and tibial shaft I made a 4mm cut. Care was taken to protect the posterior soft tissues and I removed the bone and excess debris. I trialed with an extension block I still felt the knee was too tight. I released the anterior MCL and capsule with a soni and removed an additional 2mm from the tibia. I was satisfied with the amount of resection using the trial . I then made my saggital cut with a saggital saw a saw just medial to the tibial insertion of the ACL. All bone was removed and I placed my 9mm extension block to make my distal femoral cut in terminal extension. Once my cut was made and all bony debris was removed and assessed my flexion and extension gaps and was satisfied with the balance and tightness. I therefore placed my sizing guide and sized a 5 femur. I placed my chamfer cutting guide and made my chamfer cuts as well as my lug holes. I then turned my attention to the tibia and sized a H tibia. A guide was placed and my lug holes drilled. I then trialed a 5H9 and was satisfied with tracking and stability. One bag of Palacos bone cement was mixed on the back table with 3rd gen cementation technique. I then cemented in the femur and tibia in standard fashion while applying axial compression. Once the cement was hard on the back table all excess cement was removed and I trialed different inserts until I selected a #9 insert. The final insert was placed. I irrigated copiously and t he knee was then closed with a running Quill suture, a 3 0 Vicryl and marie on the skin. Patient was then placed in sterile dressing and brought to recovery room in stable condition there were no known complications.
== END 2024-05-14 14:37 | disposition home health service (06) ==
LOC: HO.SSS 11:56 → HO.S3 14:18
PROVIDERS: Nurse Practitioner; Physician Assistant; PCP Internal Medicine; Visit Provider Orthopaedic Surgery
PROC: (CPT 27446; principal; 2024-05-13 09:20)
DX: M17.11 Unilateral primary osteoarthritis, right knee (principal); M25.561 Pain in right knee; R26.2 Difficulty in walking, not elsewhere classified; K21.9 Gastro-esophageal reflux disease without esophagitis; L30.9 Dermatitis, unspecified; J30.2 Other seasonal allergic rhinitis; Z79.899 Other long term (current) drug therapy; Z79.1 Long term (current) use of non-steroidal anti-inflammatories (NSAID); Z98.890 Other specified postprocedural states; F17.290 Nicotine dependence, other tobacco product, uncomplicated
CPT/HCPCS: 27446; 36415; 73560; 80048; 85014; 85018; 85025; 85027; 86850; 86900; 86901; 87640; 87641; 88305; 88311; 93005; 97110; 97116; 97161; C1713; C1776; J0131; J0665; J0690; J1100; J1171; J2003; J2250; J2405; J2704; J3010; J7120

== ENCOUNTER → 2024-05-13 06:59 | Outpatient (BNV) | payer BC, SELFPAY | PROVIDERS: PCP Internal Medicine; Visit Provider Orthopaedic Surgery | DX: M17.11 Unilateral primary osteoarthritis, right knee (principal) | CPT/HCPCS: 27446; 99024; G0180 ==

== ENCOUNTER → 2024-05-13 12:02 | Outpatient (BNV) | payer BC, SELFPAY | PROVIDERS: PCP Internal Medicine; Visit Provider Radiology Diagnostic Radiology | DX: Z96.651 Presence of right artificial knee joint (principal) | CPT/HCPCS: 73560 ==

== ENCOUNTER 2024-05-29 12:40 | Outpatient (AMB) | payer BC, SELFPAY ==
--- NOTE | 2024-05-29 13:00 | MHC.OFFVIS ---
Vital Signs 05/29/24 13:06 Height 6 ft Weight 250 lb BMI 33.9 Intake Visit Reasons: 2WK PO: R Knee UKA w/NE 05/13/24 Intake Note: is a 38 year old male who presents today for a post operative RT Knee UKA, DOS 05/13/24 NE. Patient reports he is feeling well. Pt states he will have occasional pain. Pt states he will be starting PT tomorrow. Pt states he was told to use crutches now instead of a walker and has been doing well with that. Allergies No Known Allergies Allergy (Verified 05/29/24 13:01) Medication List - Last Reconciled 05/29/24 by Adiel Collins PA-C acetaminophen 650 mg (2 x 325 mg) PO Q6H PRN 30 days aspirin 325 mg PO BID 42 days celecoxib 200 mg PO BID 30 days loratadine (Claritin) 10 mg PO DAILY PRN sennosides (Senna Lax) 17.2 mg (2 x 8.6 mg) PO BEDTIME 30 days walker Folding Front wheeled walker DURATION 99 DAYS HPI HPI 2WK PO: R Knee UKA w/NE 05/13/24: Details: 38-year-old gentleman returns to the office today 2 weeks status post right knee unicompartmental arthroplasty on 05/13/[address] Castillo. He is doing well. Ambulates with crutches. Pain is well managed. [facility] Medical History History of wasserman Arthritis GERD (gastroesophageal reflux disease) Hiatal hernia Seasonal allergies Surgical History Hx of nasal septoplasty Hx of wisdom tooth extraction Hx of oral surgery History of esophagogastroduodenoscopy (EGD) Social History Household Members: Spouse Household Members Other:: two dogs Housing: House Are you a primary patient care provider to a significant other at home: No Do you presently have visiting nurse or other home services: No Alcohol intake: current Alcohol intake frequency: a few times a month Patient Tobacco Use Status: Never used Tobacco Tobacco use type: Cigar service: No Current occupational status: employed 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 No erythema. Mild swelling. Range of motion is 0-95 degrees. He has poor activation of his quad muscle. Calf supple nontender neurovascularly intact. Assessment & Plan Assessment & Plan (1) Status post unicompartmental knee replacement, right: Code(s): Z96.651 - Presence of right artificial knee joint Category: Surgical Plan: Ana removed today Steri-Strips applied. He will continue work with physical therapy and transition to outpatient physical therapy to continue working on range of motion and quad strengthening exercises. He has discontinue the use of the oxycodone and we will continue with Tylenol and Celebrex. Continue with aspirin for another 4 weeks. He will see us back in [address] Castillo sooner if needed. Coding Level of Care Code Global (30008) Diagnoses Status post unicompartmental knee replacement, right Z96.651
[2024-05-29 13:06] VITALS: BMI 33.9
--- OUTSIDE RECORDS SUMMARY | 2024-05-29 15:05 | XMS_ITS | Patient Health Record ---
Author Organization [facility] Address [address] [place] [address] Care Team Providers Care Webbing Inspector Name Role Phone Dameon Thomas MD Primary Care Provider Unavaila Jovani Hickman Unavailable [phone] Lee Quinn Unavailable Unavailable Reason For Referral No Information Problems Problem Type SNOMED Code ICD Code Onset Dates Problem Status W/U Status Risk Notes Problem Stricture of esophagus (26057214) Esophageal obstruction (K22.2) Active confirmed Problem Dysphagia (59497745) Dysphagia (R13.10) Active confirmed Plan Of Treatment Future Test Test Name Order Date UPPER GI ENDOSCOPY BALLOOON DILATION OF ESOPH 03/02/2020 Insurance Providers Payer Name Payer Address Payer Phone Subscriber Number Group Number Insured Name Patient Relationship to Insured Coverage Start Date Coverage End Date [facility] BLUE BS PROFESSIONAL CLAIMS [address] [place] [address] [id number] 5 ADALBERTO YOUNG Self - patient is the insured
--- OUTSIDE RECORDS SUMMARY | 2024-05-29 15:05 | XMS_ITS | Clinical Summary ---
Author Organization [facility] Address [address] [place] [address] Phone Care Team Providers Care Senior Java Data Architect Name Role Phone Dameon Thomas MD Primary [...] INFLUENZA VACCINE (#1) 2023 COVID-19 VACCINE (3 - 2023-2 5 season) 2023 05/07/2020, 04/02/2020 SMOKING [...] Medical Devices Not on file Care Teams Senior Java Data Architect Relationship Specialty Start Date End Date Dameon Thomas MD [address] [place] [address] [place] [address] PCP - General 10/02/20 Additional Source Comments The information contained in this document represents components of the legal health record. It is not the complete legal health record.[facility]
== END 2024-05-29 13:42 | disposition home or self-care (01) ==
LOC: HO.HOS 12:41
PROVIDERS: PCP Internal Medicine; Visit Provider Physician Assistant
DX: Z96.651 Presence of right artificial knee joint (principal)
CPT/HCPCS: 99024

== ENCOUNTER 2024-06-19 08:19 | Outpatient (REF) | payer BC, SELFPAY ==
--- NOTE | ~2024-06-19 | XR_ITS ---
EXAMINATION: XR KNEE, RIGHT CLINICAL INFORMATION: M25.562 - Pain in RIGHT knee COMPARISON: May 13, 2024. TECHNIQUE: AP view both knees in standing position and lateral and sunrise view of the right knee. FINDINGS: There is a metallic prosthesis seated in the medial femoral condyle and medial tibial plateau. There is loosening in the tibial component. No gross malalignment. There is genu varus deformity, right greater than the left lower extremity. Mild degenerative changes in the medial compartment of the left knee. There is moderate to large volume of fluid, suprapatellar bursa, right knee. XR/XR knee RT 3V IMPRESSION: Loosening at the tibial prosthesis component. Suprapatellar bursa joint effusion. Electronically signed by: Michael Hernandez MD 07/17/2024 01:45 PM EDT
--- OUTSIDE RECORDS SUMMARY | 2024-06-19 08:29 | XMS_ITS | Clinical Summary ---
Author Organization [facility] Address [address] [place] [phone] Phone Care Team Providers Care Adult And Pediatric Neurologist Name Role Phone Dameon Thomas MD Primary [...] Medical Devices Not on file Care Teams Adult And Pediatric Neurologist Relationship Specialty Start Date End Date Dameon Thomas MD [address] [place] [address] [place] [address] PCP - General 10/02/20 Additional Source Comments The information contained in this document represents components of the legal health record. It is not the complete legal health record.[facility]
--- OUTSIDE RECORDS SUMMARY | 2024-06-19 08:30 | XMS_ITS | Patient Health Record ---
Author Organization [facility] Address [address] [place] [phone] Care Team Providers Care Graphotype Operator Name Role Phone Dameon Thomas MD Primary Care Provider Unavaila Jovani Hickman Unavailable [phone] Lee Quinn Unavailable Unavailable Reason For Referral No Information Problems Problem Type SNOMED Code ICD Code Onset Dates Problem Status W/U Status Risk Notes Problem Stricture of esophagus (99704657) Esophageal obstruction (K22.2) Active confirmed Problem Dysphagia (88011925) Dysphagia (R13.10) Active confirmed Plan Of Treatment Future Test Test Name Order Date UPPER GI ENDOSCOPY BALLOOON DILATION OF ESOPH 03/02/2020 Insurance Providers Payer Name Payer Address Payer Phone Subscriber Number Group Number Insured Name Patient Relationship to Insured Coverage Start Date Coverage End Date [facility] BLUE BS PROFESSIONAL CLAIMS [address] [place] [address] [phone] [id number] ADALBERTO YOUNG Self - patient is the insured
== END 2024-06-19 08:20 | disposition home or self-care (01) ==
LOC: HO.HOSX 08:19
PROVIDERS: Visit Provider Orthopaedic Surgery
DX: M25.562 Pain in left knee (principal)
CPT/HCPCS: 73562

== ENCOUNTER 2024-06-19 08:59 | Outpatient (AMB) | payer BC, SELFPAY ==
--- NOTE | 2024-06-19 09:02 | MHC.OFFVIS ---
Intake Visit Reasons: 6WK PO: R Knee UKA w/NE 05/13/24 Intake Note: is a 38 year old male who presents today for a post operative appointment about 6 weeks s/p Right UKA 05/13/24. Patient reports that he is doing well at this time with no concerns. Allergies No Known Allergies Allergy (Verified 06/19/24 09:18) HPI HPI 6WK PO: R Knee UKA w/NE 05/13/24: Details: Austin is 6 weeks status post right Uni doing well. He has no complaints. [facility] Medical History History of wasserman Arthritis GERD (gastroesophageal reflux disease) Hiatal hernia Seasonal allergies Surgical History Hx of nasal septoplasty Hx of wisdom tooth extraction Hx of oral surgery History of esophagogastroduodenoscopy (EGD) Social History Household Members: Spouse Household Members Other:: two dogs Housing: House Are you a primary animal daycare provider to a significant other at home: No Do you presently have visiting nurse or other home services: No Alcohol intake: current Alcohol intake frequency: a few times a month Patient Tobacco Use Status: Never used Tobacco Tobacco use type: Cigar service: No Current occupational status: employed 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 10-130 degrees of motion. No effusion. Results Reviewed Results Reviewed: I personally reviewed relevant radiographs. Right unicompartmental knee arthroplasty in expected post operative position with no hardware complications or evidence of loosening Assessment & Plan Assessment & Plan (1) Status post unicompartmental knee replacement, right: Code(s): Z96.651 - Presence of right artificial knee joint Category: Surgical Plan: Status post right UK a. He is doing well. Continue to work on quad strengthening and terminal extension. May return to work 4 hours a day with no lifting over 50 lb. Follow up telehealth in 4 weeks for work assessment. Coding Level of Care Code Global (12228) Diagnoses Status post unicompartmental knee replacement, right Z96.651
--- OUTSIDE RECORDS SUMMARY | 2024-06-19 09:32 | XMS_ITS | Clinical Summary ---
Author Organization [facility] Address [address] [place] [address] Phone Care Team Providers Care Machine Stamper Name Role Phone Dameon Thomas MD Primary [...] Medical Devices Not on file Care Teams Machine Stamper Relationship Specialty Start Date End Date Dameon Thomas MD [address] [place] [address] [place] [address] PCP - General 10/02/20 Additional Source Comments The information contained in this document represents components of the legal health record. It is not the complete legal health record.[facility]
== END 2024-06-19 09:23 | disposition home or self-care (01) ==
LOC: HO.HOS 08:59
PROVIDERS: PCP Internal Medicine; Visit Provider Orthopaedic Surgery
DX: Z96.651 Presence of right artificial knee joint (principal)
CPT/HCPCS: 99024

== ENCOUNTER → 2024-06-19 09:12 | Outpatient (BNV) | payer BC, SELFPAY | PROVIDERS: Visit Provider Radiology Diagnostic Radiology | DX: M25.461 Effusion, right knee (principal) | CPT/HCPCS: 73562 ==

== ENCOUNTER 2024-07-17 09:47 | Outpatient (AMB) | payer BC, SELFPAY ==
--- NOTE | 2024-07-17 09:47 | A.OFFVIS_ITS ---
Intake Visit Reasons: Tel-R Knee UKA w/NE 05/13/24-w/o XR Intake Note: is a 38 year old male who presents today via telehealth for a post operative appointment about 6 weeks s/p Right UKA 05/13/24. May return to work 4 hours a day with no lifting over 50 lb Allergies No Known Allergies Allergy (Verified 06/19/24 09:18) HPI HPI Tel-R Knee UKA w/NE 05/13/24-w/o XR: Details: Telehealth visit. Patient states he feels well status post right unicompartmental knee arthroplasty. He has no complaints. He states the incision is clean dry and intact. He would like to return to work. [facility] Medical History History of wasserman Arthritis GERD (gastroesophageal reflux disease) Hiatal hernia Seasonal allergies Surgical History Hx of nasal septoplasty Hx of wisdom tooth extraction Hx of oral surgery History of esophagogastroduodenoscopy (EGD) Social History Household Members: Spouse Household Members Other:: two dogs Housing: House Are you a primary farm or ranch animal caretaker to a significant other at home: No Do you presently have visiting nurse or other home services: No Alcohol intake: current Alcohol intake frequency: a few times a month Patient Tobacco Use Status: Never used Tobacco Tobacco use type: Cigar service: No Current occupational status: employed 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 Telehealth Telehealth Telehealth Platform: Telephone Location of provider rendering services: practice address Location of patient: address on file Patient Identification confirmed using: Name, : Yes Telehealth method: voice only Patient verbally consented to treatment: Yes Patient verbally consented to billing insurance company: Yes Patient informed of any privacy concerns related to visit: Yes Minutes spent on Phone/Video with Pt.: 10 Assessment & Plan Assessment & Plan (1) Status post unicompartmental knee replacement, right: Code(s): Z96.651 - Presence of right artificial knee joint Category: Surgical Plan: May return to work without restrictions. Follow up 6-9 months as needed. Coding Level of Care Code Global (37784) Diagnoses Status post unicompartmental knee replacement, right Z96.651
--- OUTSIDE RECORDS SUMMARY | 2024-07-17 10:36 | XMS_ITS | Clinical Summary ---
Author Organization [facility] Address [address] [place] [phone] Phone Care Team Providers Care Rim Roller Operator Name Role Phone Dameon Thomas MD [...] Medical Devices Not on file Care Teams Rim Roller Operator Relationship Specialty Start Date End Date Dameon Thomas MD [address] [place] [address] [place] [address] PCP - General 10/02/20 Additional Source Comments The information contained in this document represents components of the legal health record. It is not the complete legal health record.[facility]
--- OUTSIDE RECORDS SUMMARY | 2024-07-17 10:36 | XMS_ITS | Patient Health Record ---
Author Organization [facility] Address [address] [place] [address] Care Team Providers Care Numerical Control Tool Programmer Name Role Phone Dameon Thomas MD Primary Care Provider Unavaila Jovani Hickman Unavailable [phone] Lee Quinn Unavailable Unavailable Reason For Referral No Information Problems Problem Type SNOMED Code ICD Code Onset Dates Problem Status W/U Status Risk Notes Problem Stricture of esophagus (40058431) Esophageal obstruction (K22.2) Active confirmed Problem Dysphagia (48592497) Dysphagia (R13.10) Active confirmed Plan Of Treatment Future Test Test Name Order Date UPPER GI ENDOSCOPY BALLOOON DILATION OF ESOPH 03/02/2020 Insurance Providers Payer Name Payer Address Payer Phone Subscriber Number Group Number Insured Name Patient Relationship to Insured Coverage Start Date Coverage End Date [facility] [place] [facility] BLUE BS PROFESSIONAL CLAIMS [address] [place] [address] [id number] ADALBERTO YOUNG Self - patient is the insured
== END 2024-07-17 10:11 | disposition home or self-care (01) ==
LOC: HO.HOS 09:47
PROVIDERS: PCP Internal Medicine; Visit Provider Orthopaedic Surgery
DX: Z96.651 Presence of right artificial knee joint (principal)
CPT/HCPCS: 99024

== ENCOUNTER 2024-08-06 15:35 | Outpatient (AMB) | payer BC, SELFPAY ==
[2024-08-06 14:15] VITALS: BP 120/80; PULSE 89; TEMP 36.9; O2SAT 98; BMI 34.0
--- NOTE | 2024-08-06 14:15 | A.OFFPC_ITS ---
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 Tender Required: No Accompanied by: Self / Same As Patient Allergies No Known Allergies Allergy (Verified 08/06/24 16:13) Medication List - Last Reconciled 08/06/24 by Niranjan Farias MD acetaminophen 650 mg (2 x 325 mg) PO Q6H PRN 30 days aspirin 325 mg PO BID 42 days loratadine (Claritin) 10 mg PO DAILY PRN walker Folding Front wheeled walker DURATION 99 DAYS Tobacco use date assessed: 08/06/24 Dental Screening Dental Screen Date: 08/06/24 Did you have a dental visit in the last 12 months?: No Did you have a dental problem in the last 6 months where you did not have access to dental care?: No HPI Routine HPI Details Patient present to the office requesting an annual physical [facility] Medical History History of wasserman Arthritis GERD (gastroesophageal reflux disease) Hiatal hernia Seasonal allergies Surgical History Hx of nasal septoplasty Hx of wisdom tooth extraction Hx of oral surgery History of esophagogastroduodenoscopy (EGD) Family History Mother No problems noted. Father No problems noted. 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 1. Little interest or pleasure in doing things: not at all 2. Feeling down, depressed, or hopeless: not at all 3. Trouble falling or staying asleep, or sleeping too much: not at all 4. Feeling tired or having little energy: not at all 5. Poor appetite or overeating: not at all 6. Feeling bad about yourself - or that you are a failure or have let yourself or your family down: not at all 7. Trouble concentrating on things, such as reading the newspaper or watching television: not at all 8. Moving or speaking so slowly that other people could have noticed. Or the opposite - being so fidgety or restless that you have been moving around a lot more than usual: not at all 9. Thoughts that you would be better off or of hurting yourself in some way: not at all Total score: 0 Source: Developed by Drs. Jovani Fernandez, Ofelia Barrera, Rolo Alonzo and colleagues, with an educational lev from [employer]. Thrive Questionnaire Date Thrive assessed: 08/06/24 I am a: Patient Within the past 12 months, did the food you bought not last and you didn't have the money to get more?: Never true Within the past 12 months, did you worry whether your food would run out before you got money to buy more?: Never true Do you have trouble paying for medicines?: No Do you have trouble getting transportation to medical appointments?: No Do you have trouble paying your heating and electricity bill?: No Do you have trouble taking care of your child, family member or friend?: No Do you have trouble with day-to-day activities such as bathing, preparing meals, shopping, managing finances, etc.?: No Are you currently unemployed and looking for a job?: No Are you interested in more education?: No THRIVE Score: 0 AUDIT C Alcohol Use Questionnaire (AUDIT-C) 1. How often do you have a drink containing alcohol?: Monthly or less 2. How many drinks containing alcohol do you have on a typical day when you are drinking?: 1 or 2 3. How often do you have six or more drinks on one occasion?: Less than monthly Total Score: 2 TYLER-7 AMB Questionnaire TYLER-7 Date TYLER - 7 assessed: 08/06/24 Feeling nervous, anxious, or on edge: 0 = Not at all Not being able to stop or control worryin = Not at all Worrying too much about different things: 0 = Not at all Trouble relaxin = Not at all Being so restless that it is hard to sit still: 0 = Not at all Becoming easily annoyed or irritable: 0 = Not at all Feeling afraid as if something awful might happen: 0 = Not at all Total TYLER-7 score (0-4 normal; 5-9 mild; 10-14 moderate; 15-21 severe): 0 Source: Developed by Drs. Jovani Fernandez, Ofelia Barrera, Rolo Alonzo and colleagues, with an educational lev from [employer]. Physical exam (Primary Care) Vital Signs: Last Vital Signs Temp 98.4 F 08/06/24 14:15 Pulse 89 08/06/24 14:15 BP 120/80 08/06/24 14:15 Pulse Ox 98 08/06/24 14:15 Oxygen Delivery Method Room Air 08/06/24 14:15 BMI result Body Mass Index 34.0 Tobacco/Smoking Status: Tobacco use Status Tobacco use date assessed 08/06/24 08/06/24 14:17 Patient Tobacco Use Status Never used Tobacco 08/06/24 14:17 Tobacco use type Cigar 08/06/24 14:17 e-Cigarette/Vaping Use Never Used 08/06/24 14:17 PHQ-9: PHQ-9 Score PHQ-9: Total score 0 08/06/24 15:50 Thrive Assessment: Date of Thrive Assessment Date Thrive assessed 08/06/24 08/06/24 14:17 Const General: cooperative and healthy appearing Nutritional Appearance: well nourished Orientation/consciousness: patient oriented x3 Limitations: no limitations HENMT Head: Yes normal to inspection Eyes General: appearance normal, both eyes and all related structures Neck Neck: Yes normal visual inspection Chest Chest palpation & inspection: normal palpation of entire chest wall Resp Effort & Inspection: normal respiratory effort Neuro General: patient oriented x3 Coding Level of Care Code New Pt Level 4 (41683) Complex EM visit Add On G2211 Diagnoses GERD (gastroesophageal reflux disease) K21.9 Tear of medial meniscus of right knee S83.241A Assessment & Plan Assessment & Plan (1) GERD (gastroesophageal reflux disease): Comment: no Rx at this time-prn tums Code(s): K21.9 - Gastro-esophageal reflux disease without esophagitis Category: Medical Plan: Condition is stable. Currently on no meds (2) Tear of medial meniscus of right knee: Code(s): S83.241A - Other tear of medial meniscus, current injury, right knee, initial encounter Category: Medical Plan: Condition is stable.
--- OUTSIDE RECORDS SUMMARY | 2024-08-06 16:05 | XMS_ITS | Patient Health Record ---
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 Name Role Phone Dameon Thomas MD Primary Care Provider Unavaila Jovani Hickman Unavailable [phone] Lee Quinn Unavailable Unavailable Reason For Referral No Information Problems Problem Type SNOMED Code ICD Code Onset Dates Problem Status W/U Status Risk Notes Problem Esophageal obstruction (K22.2) Active confirmed Problem Dysphagia (06033227) Dysphagia (R13.10) Active confirmed Plan Of Treatment Future Test Test Name Order Date UPPER GI ENDOSCOPY [place] DILATION OF ESOPH 03/02/2020 Insurance Providers Payer Name Payer Address Payer Phone Subscriber Number Group Number Insured Name Patient Relationship to Insured Coverage Start Date Coverage End Date O [employer] [address] [place] [address] [id number] ADALBERTO YOUNG Self - patient is the insured
== END 2024-08-06 16:16 | disposition home or self-care (01) ==
LOC: HO.HMCHD 15:36
PROVIDERS: PCP Internal Medicine; Visit Provider Internal Medicine
DX: K21.9 Gastro-esophageal reflux disease without esophagitis (principal); S83.241A Other tear of medial meniscus, current injury, right knee, initial encounter

== ENCOUNTER → 2024-08-06 15:35 | Outpatient (BNVA) | payer BC, SELFPAY | PROVIDERS: PCP Internal Medicine; Visit Provider Internal Medicine | DX: Z13.89 Encounter for screening for other disorder (principal) ==

== ENCOUNTER 2024-08-13 06:00 | Outpatient (RCR) | payer BC, SELFPAY ==
--- NOTE | 2024-05-30 15:02 | MHC.PT.EP ---
[facility] [place] Office [place] Office [place] Office [address] Sintia Guzman [address] [phone] F: [phone] F: [phone] F: [phone] F: [phone] Physical Therapy Plan of Care Date of Evaluation: 05/30/24 Date of Surgery: 05/13/24 Diagnosis: s/p R UKA 05/13/24 Assessment: Patient is a 38 year old R handed male who presents with s/s consistent with R UKA on 05/13/24. 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 Patient past medical history includes wasserman, GERD, and a hiatal hernia. Current impairments include pain, balance, ROM, strength, activity tolerance and functional mobility. Functional limitations include decreased ability to stand, walk, negotiate stairs and perform weight bearing activities. Patient is motivated with good rehab potential. Skilled PT will address impairments and functional limitations in order to achieve goals. Frequency and Duration: The patient will be seen 2x/week for 5 weeks Short Term Goals: I with HEP - 2 weeks AROM 0-120 - 3 weeks Quad set normal - 3 weeks SLR without lag - 3 weeks Longterm Goals: Strength 4+/5 grossly - 5 weeks LEFS 60/80 - 5 weeks Pain free symmetrical stair negotiation - 5 weeks Treatment Plan: Modalities to reduce pain, spasms and effusion. Manual therapy to restore motion and function. Therapeutic exercise to improve strength and flexibility. Neuromuscular re-education for posture and balance. Therapeutic activities to return to functional activities of daily living. Electronically signed by: Sterling Vidal, PT Please sign and return to therapist. Thank you for your referral.
--- NOTE | 2024-09-30 10:29 | MHC.PT.DC ---
[facility] [place] Office [place] [facility] [place] [facility] [address] [place] [address] [phone] F: [phone] F: [phone] F: [phone] F: [phone] Physical Therapy Discharge Report Diagnosis: s/p R UKA 05/13/24 Date of Surgery: 05/13/24 Date of Evaluation: 05/30/24 Date of Discharge: 08/21/24 Treatments to Date: 15 Cancellations to Date: No Shows to Date: Discharge Status: Improved Function Independent with HEP Discharge Summary: 08/13/24: pt progressed well in skilled PT. LEFS 54/80. Strength 4+/5 grossly. flexibility WNL. Good quad set. 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 we will d/c to HEP at this time. 08/06/24: pt has been continuing to progress functionally. less swelling today. good response to strength and stretching program. good mechanics with tap downs. 07/29/24: pt has been progressing well with skilled PT. no adverse reactions. improved strength and full extension with gait. 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 07/25/24: pt still with difficulty achieving full ext against gravity. we continue to emphasize this. 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 07/09/24: pt with lag which reduced with 2# weight added. added bosu and shuttle jumps. no adverse reactions. 07/04/24: held progression due to swelling. educated in icing. patient with improved eccentric control of step up and over with 8 . 07/02/24: continuing to reduce lag. discussed antalgic nature of gait and intentionally slowing down, flexion knee and striking heel. 06/27/24: pt progressing well with skilled PT. no adverse reactions. Lag to 7 today. continue to progress strength as tolerated. 06/24/24: continuing to progress with ext and focus on reducing lag. to 10 today. continue to progress strength and function as tolerated. 06/19/24: pt progressing well with flexion. ext to full but with SLR lag of 15 degrees still. continue to address this and encourage HEP For reducing lag. 06/17/24: Lag persists, reduced after [place] stim. we will try this to start next appt. continue to address ext LAG. 06/13/24: increased time spent with ext/stretching and focus on promoting SLR extension. still with 15-20 degree lag. 06/10/24: pt progressing well with skilled PT. educated on use of I and importance of full extension. 06/06/24: pt progressing well with skilled PT. no adverse reactions. fatigues R quad quickly. Continue to progress with focus quad strength. 06/03/24: pt able to achieve more ROM. progressing well with quad set and SLR - though still requiring modA to minimize lag. Patient is a 38 year old R handed male who presents with s/s consistent with R UKA on 05/13/24. 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 Patient past medical history includes wasserman, GERD, and a hiatal hernia. Current impairments include pain, balance, ROM, strength, activity tolerance and functional mobility. Functional limitations include decreased ability to stand, walk, negotiate stairs and perform weight bearing activities. Patient is motivated with good rehab potential. Skilled PT will address impairments and functional limitations in order to achieve goals. Electronically signed by: Sterling Vidal, PT Please sign and return to therapist. Thank you for your referral.
== END 2024-09-30 10:29 | disposition home or self-care (01) ==
LOC: HO.PTCHIC 06:00
PROVIDERS: PCP Internal Medicine; Visit Provider Physician Assistant
DX: Z47.1 Aftercare following joint replacement surgery (principal); Z96.651 Presence of right artificial knee joint
CPT/HCPCS: 97014; 97110; 97161

== ENCOUNTER 2024-11-06 14:05 | Outpatient (AMB) | payer BC, SELFPAY ==
--- NOTE | 2024-11-06 14:06 | MHC.PC.OV ---
Vital Signs 11/06/24 14:24 Height 6 ft Weight 139 lb BMI 18.8 BP 118/76 Blood Pressure Location Lt brachial Position Sitting Respiration 16 Pulse 72 Pulse Source Pulse Oximeter Temp 97.8 F Pulse Oximetry (%) 97 Oxygen Delivery Method Room Air Intake Visit Reasons: Stomach Issues - see comments Coat Check Attendant Required: No Accompanied by: Self / Same As Patient Allergies No Known Allergies Allergy (Verified 11/06/24 14:06) Tobacco use date assessed: 08/06/24 Dental Screening Dental Screen Date: 08/06/24 HPI HPI Comments History of Present Illness Details The patient is a 38-year-old male presenting with gastrointestinal symptoms, primarily consisting of severe stomach issues and diarrhea. Approximately four weeks ago, he started experiencing feelings of his stomach racing and intense discomfort, characterized by being in knots and frequent episodes of diarrhea with loose, oily stools. These symptoms began spontaneously two weeks before a planned vacation, with no identifiable changes in his routine or exposure to illness. He noted that stress experienced during his physically demanding job with the [employer] exacerbates his symptoms, especially when engaged in tasks such as blacktopping or construction. The patient describes his symptoms as feeling like running a marathon, with onset shortly after eating, followed by cramping and an urgent need to defecate. While the discomfort is somewhat alleviated by rest, the underlying symptoms persist. He denied any fevers, chills, cough, or difficulty swallowing, although he has a history of seasonal allergies. A notable consequence of these gastrointestinal issues is significant unintentional weight loss, reporting an approximate 10-pound reduction over the past three months. Attempts to modify his diet to manage these symptoms, such as eliminating spicy foods and consuming bland foods and smaller meals, have shown limited effect. However today, since having no intake, he has had complete resolution in symptoms. Adding to his medical history, the patient had a dilation procedure for esophageal stricture five years ago after experiencing food impaction. He has not had similar episodes since or seen a specialist regarding this issue post-procedure. Medical History: - Seasonal allergies - Unintentional weight loss - History of esophageal dilation due to stricture Surgical History: - Knee surgery related to an operation mentioned in April - Nasal surgery (not further specified) Medications: - Loratadine as needed for allergies - Tylenol for knee pain Social: - Employment: Works for the [employer], engaging in physically demanding tasks - Substance use: Occasionally smokes cigars; denied marijuana use due to CDL restrictions; minimal alcohol consumption since knee surgery - Dietary habits: Adjusted diet to manage symptoms, avoiding spicy and fatty foods, attempts at consuming bland foods - Physical Activity: Limited due to knee issues, previously played softball, mows lawns for activity [facility] Medical History History of wasserman Arthritis GERD (gastroesophageal reflux disease) Hiatal hernia Seasonal allergies Surgical History Hx of nasal septoplasty Hx of wisdom tooth extraction Hx of oral surgery History of esophagogastroduodenoscopy (EGD) Family History Mother No problems noted. Father No problems noted. 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 1. Little interest or pleasure in doing things: not at all 2. Feeling down, depressed, or hopeless: not at all 3. Trouble falling or staying asleep, or sleeping too much: not at all 4. Feeling tired or having little energy: not at all 5. Poor appetite or overeating: not at all 6. Feeling bad about yourself - or that you are a failure or have let yourself or your family down: not at all 7. Trouble concentrating on things, such as reading the newspaper or watching television: not at all 8. Moving or speaking so slowly that other people could have noticed. Or the opposite - being so fidgety or restless that you have been moving around a lot more than usual: not at all 9. Thoughts that you would be better off or of hurting yourself in some way: not at all Total score: 0 Depression Screening Interpretation: Negative Depression Screening Done: Yes [id number] - PHQ-9 Billing: Yes Source: Developed by Drs. Jovani Fernandez, Ofelia Barrera, Rolo Alonzo and colleagues, with an educational lev from [employer]. Thrive Questionnaire Date Thrive assessed: 08/06/24 AUDIT C Alcohol Use Questionnaire (AUDIT-C) 1. How often do you have a drink containing alcohol?: Never 3. How often do you have six or more drinks on one occasion?: Never Total Score: 0 Score Reviewed/Action Taken: Yes TYLER-7 AMB Questionnaire TYLER-7 Date TYLER - 7 assessed: 08/06/24 Feeling nervous, anxious, or on edge: 0 = Not at all Not being able to stop or control worryin = Not at all Worrying too much about different things: 0 = Not at all Trouble relaxin = Not at all Being so restless that it is hard to sit still: 0 = Not at all Becoming easily annoyed or irritable: 0 = Not at all Feeling afraid as if something awful might happen: 0 = Not at all Total TYLER-7 score (0-4 normal; 5-9 mild; 10-14 moderate; 15-21 severe): 0 Source: Developed by Drs. Jovani Fernandez, Ofelia Barrera, Rolo Alonzo and colleagues, with an educational lev from [employer]. TYLER-7 Assessment Billing TYLER-7 Assessment Tool: TYLER-7 Assessment 78204 Review of Systems Const Details: - Constitutional: Denies fever or chills - ENT: Denies difficulty swallowing - Respiratory: Denies cough or respiratory symptoms - Gastrointestinal: Reports severe stomach discomfort, diarrhea, oily stools, and unintentional weight loss - Allergy/Immunology: Reports seasonal allergies All systems reviewed & are unremarkable except as noted in HPI and below Physical exam (Primary Care) Vital Signs: Last Vital Signs Temp 97.8 F 11/06/24 14:24 Pulse 72 11/06/24 14:24 Resp 16 11/06/24 14:24 BP 118/76 11/06/24 14:24 Pulse Ox 97 11/06/24 14:24 Oxygen Delivery Method Room Air 11/06/24 14:24 BMI result Body Mass Index 18.8 Tobacco/Smoking Status: Tobacco use Status Tobacco use date assessed 08/06/24 11/06/24 14:06 Patient Tobacco Use Status Current someday Tobacco 11/06/24 14:27 Tobacco use type Cigar 11/06/24 14:27 e-Cigarette/Vaping Use Never Used 11/06/24 14:06 Depression Screening Interpretation: Negative Thrive Assessment: Date of Thrive Assessment Date Thrive assessed 08/06/24 11/06/24 14:06 Const Other: General: Alert and oriented, Well nourished, No acute distress. Eye: Pupils are equal, round and reactive to light, Intact accommodation, Extraocular movements are intact, Normal conjunctiva, Vision unchanged. HENT: Normocephalic, Atraumatic, Tympanic membranes are clear, Normal hearing, Oral mucosa is moist, No pharyngeal erythema, Ear canals patent. Respiratory: Lungs CTA bilaterally, No wheeze, Respirations are non-labored. Cardiovascular: Regular rate, Regular rhythm, S1 auscultated, S2 auscultated, No murmur, Good pulses equal in all extremities, Normal peripheral perfusion, No edema. Gastrointestinal: Soft, Non-tender, Non-distended, Normal bowel sounds, No organomegaly. Musculoskeletal: Normal range of motion, Normal strength, No tenderness, No swelling, No deformity, Normal gait. Integumentary: Warm, Dry, [place], Intact. Neurologic: Alert, Oriented, Normal sensory, Normal motor function, No focal defects, Cranial Nerves II-XII are grossly intact, Normal deep tendon reflexes. Psychiatric: Cooperative, Appropriate mood & affect, Normal judgment. Coding Level of Care Code New Pt Level 4 (22580) Complex EM visit Add On G2211 Diagnoses Abdominal pain R10.9 Additional Codes PHQ-9 - 87609 - PHQ-9 Billing: Yes ([id number]) TYLER-7 Assessment Billing - TYLER-7 Assessment Tool: TYLER-7 Assessment 78664 ([id number]) Assessment & Plan Assessment & Plan (1) Abdominal pain: Comment: - Associated with oily stools, cramping of the abdomen and generalized discomfort. At this time etiologies include possible giardiasis, GERD, pancreatic insufficiency, infection or celiac disease. He also endorses a 10 lb weight loss -To further evaluated we will send stool cultures and labs in addition to fecal fat to determine if this is an underlying etiology and also obtain a lipase level to evaluate her pancreatic function - At this time it does appear to be dietary given improvement in symptoms today given he has had no PO intake. Code(s): R10.9 - Unspecified abdominal pain Category: Medical Plan: - I have ordered stool studies to evaluate for infection, fecal fat, and inflammation markers. - Blood work including lipase level and serologies for celiac disease, hepatitis, HIV, syphilis, and TSH levels will be performed. - I discussed the possibility of a dietary component such as gluten intolerance and advised the patient to maintain a detailed food diary. - If blood work is unremarkble including stool studies will obtain CT Abdomen. Plan 2. Unintentional weight loss - The weight loss is being investigated in relation to the gastrointestinal symptoms. - I have recommended monitoring weight closely over the coming months while trying to address the gastrointestinal issues. 3. Seasonal allergies - Continuing loratadine as needed. 4. History of dysphagia due to esophageal stricture - No current issues reported, no further interventions at this time. I have discussed with the patient the potential causes of his gastrointestinal symptoms, including dietary triggers and possible infections. I stressed the importance of keeping a detailed food diary to help identify any specific foods that might be exacerbating his symptoms. The patient has been advised that further work-up includes both stool and blood tests to rule out infections and conditions such as celiac disease. It was explained that allergen management through continued use of loratadine should help control his seasonal allergies. We have agreed to follow up based on test results accessible through the patient portal, and routine follow-up is suggested in six months unless lab results dictate sooner action. Orders: Orders Comprehensive Met. Panel Today R10.9 - Unspecified abdominal pain Hepatitis A,B,C Profile Today R10.9 - Unspecified abdominal pain Syphilis Screen Today R10.9 - Unspecified abdominal pain Vitamin D 25-OH Total Today R10.9 - Unspecified abdominal pain Fecal Fat Qualitative Today R10.9 - Unspecified abdominal pain Lipase Today R10.9 - Unspecified abdominal pain Complete Blood Count Auto Diff Today R10.9 - Unspecified abdominal pain Hemoglobin A1c Today R10.9 - Unspecified abdominal pain HIV Ab/Ag Today R10.9 - Unspecified abdominal pain Lipid Panel Today R10.9 - Unspecified abdominal pain TSH reflex Free T4 Today R10.9 - Unspecified abdominal pain Celiac Disease Panel Today R10.9 - Unspecified abdominal pain Calprotectin, Fecal Today R10.9 - Unspecified abdominal pain Lactoferrin, Fecal, Quant. Today R10.9 - Unspecified abdominal pain Giardia Ag Stool EIA Today R10.9 - Unspecified abdominal pain Patient Instructions: - Keep a detailed food diary to help identify any potential dietary triggers for symptoms. - Continue taking loratadine as needed for allergy symptoms. - Monitor weight regularly and report further loss. - Follow up on blood and stool test results through the patient portal. - Seek medical attention if symptoms worsen or new symptoms arise.
[2024-11-06 14:24] VITALS: BP 118/76; PULSE 72; RESP 16; TEMP 36.6; O2SAT 97; BMI 18.8
--- OUTSIDE RECORDS SUMMARY | 2024-11-06 14:51 | XMS_ITS | Patient Health Record ---
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 Name Role Phone William (RETIRED) Dameon GARCIA Primary Care Provide r Unavailable Jovani Soares Unavailable [phone] Lee Quinn Unavailable Unavailable Reason For Referral No Information Problems Problem Type SNOMED Code ICD Code Onset Dates Problem Status W/U Status Risk Notes Problem Stricture of esophagus (51864501) Esophageal obstruction (K22.2) Active confirmed Problem Dysphagia (94472231) Dysphagia (R13.10) Active confirmed Plan Of Treatment Future Test Test Name Order Date UPPER GI ENDOSCOPY BALLOOON DILATION OF ESOPH 03/02/2020 Insurance Providers Payer Name Payer Address Payer Phone Subscriber Number Group Number Insured Name Patient Relationship to Insured Coverage Start Date Coverage End Date O [employer] CLAIMS [address] [place] [address] [id number] ADALBERTO YOUNG Self - patient is the insured
--- OUTSIDE RECORDS SUMMARY | 2024-11-06 14:51 | XMS_ITS | Clinical Summary ---
Author Organization [facility] Address [address] [place] [id number] Phone Care Team Providers Care Flight Agent Name Role Phone Dameon Thomas MD Primary [...] Recorded Sex Assigned at Not on file Legal Sex Male 9:14 PM EDT Gender Identity Not on file Sexual Orientation Not on file Last Filed Vital Signs Vital Sign Reading Time Taken Comments Blood Pressure 128/80 10/02/2020 3:19 PM EDT Pulse 74 10/02/2020 3:19 PM EDT Temperature 36.4 C (97.6 F) 10/02/2020 3:19 PM EDT Respiratory Rate - - Oxygen Saturation 98% [...] LIPID PANEL 1984 DEPRESSION SCREENING 1996 HEPATITIS C SCREENING 2002 HIV ONE-TIME SCREENING (18-6 5 YEARS) 2002 COVID-19 VACCINE (3 - 2023-2 5 season) [...] age to complete this topic MENINGOCOCCAL VACCINES (B) Aged Out N o longer eligible based on patient's age to complete this topic PNEUMOCOCCAL VACCINES (0-49 years) Aged Out No longer eligible b ased on patient's age to complete this topic Medical Devices Not on file Insurance [facility] [place] [address] [place] [address] [place] [address] [place] [address] POS [facility] Care Teams Flight Agent Relationship Specialty Start Date End Date Dameon Thomas MD [address] [place] [address] [place] [address] PCP - General 10/02/20 Additional Source Comments The information contained in this document represents components of the legal health record. It is not the complete legal health record.[facility]
== END 2024-11-06 16:33 | disposition home or self-care (01) ==
LOC: HO.HMCHD 14:05
PROVIDERS: PCP Student in an Organized Health Care Education/Training Program; Visit Provider Student in an Organized Health Care Education/Training Program
DX: R10.9 Unspecified abdominal pain (principal); R63.4 Abnormal weight loss; J30.9 Allergic rhinitis, unspecified

== ENCOUNTER 2024-11-06 14:05 | Outpatient (REF) | payer BC, SELFPAY ==
[2024-11-06 15:08] LABS: MANUAL DIFF FLAG NO
[2024-11-06 15:31] LABS: Hematocrit 49.5 % (42.0-52.0); Hemoglobin 16.5 g/dl (14.0-18.0); Imm Gran Abs Auto 0.01 X10*3/uL (0.00-0.03); Imm Gran Pct Auto 0.3 % (0.0-0.4); Lymphocytes Absolute Auto 1.0 X10*3/uL (1.2-4.9); Mean Corpuscular HGB Conc 33.3 g/dl (31.0-36.0); Mean Corpuscular Hemoglobin 30.0 pg (27.0-33.0); Mean Corpuscular Volume 90.0 fL (80.0-98.0); NRBC Abs Auto 0.000 X10*3/uL (0.0-0.012); NRBC Pct Auto 0.0 /100WBC (0.0-0.2); Platelet Count 209 X10*3/uL (160-400); Red Blood Count 5.50 X10*6/uL (4.60-5.80); White Blood Count 3.9 X10*3/uL (4.8-10.8)
[2024-11-06 16:15] LABS: Alanine Aminotransferase 27 U/L (0-40); Albumin Level 4.6 g/dL (3.5-5.0); Alkaline Phosphatase 65 U/L (39-117); Anion Gap 11 (12-20); Aspartate Amino Transferase 25 U/L (5-37); Blood Urea Nitrogen 12 mg/dL (9-16); Calcium 9.1 mg/dL (8.4-10.2); Carbon Dioxide 29 mmol/L (22-29); Chloride 104 mmol/L (96-108); Cholesterol 197 mg/dL (<200); Estimated Glomerular Filt Rate > 60; HDL Cholesterol 37 mg/dL (>40); Lipase 28 U/L (8-78); Potassium 4.3 mmol/L (3.3-5.1); Sodium 140 mmol/L (135-145); Total Protein 7.0 g/dL (6.5-8.0); Triglycerides 111 mg/dL (<150)
[2024-11-07 03:40] LABS: Syphilis Screen Nonreactive (Nonreactive)
[2024-11-07 03:47] LABS: HBS Num1 165.52 mIU/mL (0-7.99); HBc Num1 0.04 S/CO (0.00-0.79); HBsAGNum1 0.36 S/CO (0.00-0.99); HIV Num 1 0.05 S/CO (0.00-0.99); Hepatitis A Antibody IgM 0.18 Index (0-0.79); Hepatitis B Surface Antigen Negative (Negative); ~HepC Num1 0.19 S/CO (0.00-0.79); ~Hepatitis A Antibody IgM Nonreactive (Nonreactive); ~Hepatitis B Surface Antibody REACTIVE (Nonreactive); ~Hepatitis C Antibody Nonreactive (Nonreactive)
[2024-11-07 14:07] LABS: Immunoglobulin A 246 mg/dL (47-310)
== END 2024-11-06 14:06 | disposition home or self-care (01) ==
LOC: HO.LAB 14:05
PROVIDERS: PCP Student in an Organized Health Care Education/Training Program; Visit Provider Student in an Organized Health Care Education/Training Program
DX: R10.9 Unspecified abdominal pain (principal)
CPT/HCPCS: 36415; 80053; 80061; 82306; 82784; 83036; 83690; 84443; 85025; 86364; 86704; 86706; 86709; 86780; 86803; 87340; 87389; 96127

== ENCOUNTER 2024-11-12 16:18 | Outpatient (REF) | payer BC, SELFPAY ==
--- OUTSIDE RECORDS SUMMARY | 2024-11-13 16:42 | XMS_ITS | Clinical Summary ---
Author Organization [facility] Address [address] [place] [phone] Phone Care Team Providers Care Stamp Presser Name Role Phone Dameon Thomas MD Primary [...] HIV ONE-TIME SCREENING (18-6 5 YEARS) 2002 INFLUENZA VACCINE (#1) 2024 COVID-19 VACCINE (3 - 2024-2 6 season) 2024 05/07/2020, 04/02/2020 SMOKING STATUS SCREENING (On ce [...] topic Medical Devices Not on file Insurance [facility] POS [facility] [place] [address] [place] [id number] POS [facility] POS Care Teams Stamp Presser Relationship Specialty Start Date End Date Dameon Thomas MD [address] [place] [address] [place] [address] PCP - General 10/02/20 Additional Source Comments The information contained in this document represents components of the legal health record. It is not the complete legal health record.[facility]
--- OUTSIDE RECORDS SUMMARY | 2024-11-13 16:42 | XMS_ITS | Patient Health Record ---
Author Organization [facility] Address [address] [place] [address] Care Team Providers Care Engine Designer Name Role Phone William (RETIRED) Dameon GARCIA Primary Care Provide r Unavailable Jovani Soares Unavailable [phone] Lee Quinn Unavailable Unavailable Reason For Referral No Information Problems Problem Type SNOMED Code ICD Code Onset Dates Problem Status W/U Status Risk Notes Problem Stricture of esophagus (61918557) Esophageal obstruction (K22.2) Active confirmed Problem Dysphagia (62101270) Dysphagia (R13.10) Active confirmed Plan Of Treatment Future Test Test Name Order Date UPPER GI ENDOSCOPY BALLOOON DILATION OF ESOPH 03/02/2020 Insurance Providers Payer Name Payer Address Payer Phone Subscriber Number Group Number Insured Name Patient Relationship to Insured Coverage Start Date Coverage End Date O [employer] CLAIMS [address] [place] [address] [id number] 5 ADALBERTO YOUNG Self - patient is the insured
[2024-11-19 01:44] LABS: Lactoferrin, Fecal, Quant. <6.25 mcg/mL (<7.25)
[2024-11-20 22:04] LABS: Calprotectin, Fecal 36 mcg/g
== END 2024-11-12 16:19 | disposition home or self-care (01) ==
LOC: HO.LNP 16:18
PROVIDERS: Visit Provider Student in an Organized Health Care Education/Training Program
DX: R10.9 Unspecified abdominal pain (principal)
CPT/HCPCS: 82705; 83631; 83993; 87329

== ENCOUNTER 2024-11-17 07:57 | Outpatient (REF) | payer BC, SELFPAY ==
--- OUTSIDE RECORDS SUMMARY | 2024-11-18 08:05 | XMS_ITS | Patient Health Record ---
Author Organization [facility] Address [address] [place] [phone] Care Team Providers Care Heat Reader Name Role Phone William (RETIRED) Dameon GARCIA Primary Care Provide r Unavailable Jovani Soares Unavailable [phone] Lee Quinn Unavailable Unavailable Reason For Referral No Information Problems Problem Type SNOMED Code ICD Code Onset Dates Problem Status W/U Status Risk Notes Problem Stricture of esophagus (48938293) Esophageal obstruction (K22.2) Active confirmed Problem Dysphagia (92907024) Dysphagia (R13.10) Active confirmed Plan Of Treatment Future Test Test Name Order Date UPPER GI ENDOSCOPY BALL[place]ON DILATION OF ESOPH 03/02/2020 Insurance Providers Payer Name Payer Address Payer Phone Subscriber Number Group Number Insured Name Patient Relationship to Insured Coverage Start Date Coverage End Date O [employer] CLAIMS [address] [place] [address] [phone] [id number] ADALBERTO YOUNG Self - patient is the insured
== END 2024-11-17 07:58 | disposition home or self-care (01) ==
LOC: HO.LNP 07:57
PROVIDERS: Visit Provider Student in an Organized Health Care Education/Training Program
DX: R10.9 Unspecified abdominal pain (principal)
CPT/HCPCS: 87329